=== PATIENT | male | born 1965 | race Caucasian/White ===

== ENCOUNTER 2024-02-25 16:19 | Inpatient (IN) | payer MEDICAID, OTHER ==
[~2024-02-25] VITALS: Ht 172.7 cm; Wt 85.9 kg
--- NOTE | 2024-02-25 16:32 | ED.PDOC ---
SOB-HPI HPI Comments HPI: Poor Historian. 59-year-old male presents to emergency department for worsening shortness of breath for the last three days with associated bilateral pitting edema in lower extremities. Patient states he never had this before. Denies any other acute symptoms. On arrival patient's pulse ox was 70% on room air. He was placed on a supplemental mask. Past Medcial History: Methamphetamine abuse, tobacco abuse, alcohol abuse, chronic abdominal hernia Past Surgical History: Ear tubes in childhood REVIEW OF SYSTEMS: CONSTITUTIONAL: Denies acute: fever, diaphoresis, chills, HEAD: Denies acute: headache, photophobia Eyes: Denies acute: Double vision, vision loss, eye pain, eye discharge. EARS: Denies acute: tinnitus, hearing loss, ear discharge, ear pain, THROAT: Denies acute: sore throat, swelling, difficulty swallowing , pain with swallowing, change in voice. NECK: Denies acute: neck pain, neck swelling, stiff neck. HEART: Denies acute : chest pain, palpitations, LUNGS: Denies acute: wheezing, cough, hemoptysis ABDOMEN: Denies acute: abdominal pain, Nausea, Vomiting, diarrhea, melena , hematemesis, hematochezia SKIN: Denies acute: rash, redness, lesions, itchiness. EXTREMITIES: Denies acute: calf pain, numbness, tingling, weakness, denies pain in extremity. Denies acute: Low back pain. Neuro: Denies acute: focal neurological deficit, motor or sensory focal neurological deficit, tremors, seizure like activity, confusion, dizziness, change in mental status, loss of bowel or bladder function, cauda equina like symptoms. : Denies acute: dysuria, hematuria, flank pain, increase in urinary frequency. PSYCH: Denies acute: hallucination, suicidal ideation, homicidal ideation. PHYSICAL EXAM: General: no acute distress, awake and alert. Head: normocephalic, atraumatic. Neck: supple, trachea is midline, no swelling. Throat: Normal phonation. Eyes:, no erythema, no purulent discharge, no proptosis, no icterus. Heart: regular rate, regular rhythm, no significant murmur appreciated. Lungs: Moderate apparent respiratory distress, Able to speak in full sentences. No wheezing, no rhonchi, no crackles. No stridors Clear to auscultation bilaterally. Abdomen: non tender to palpation, non distended, soft, no guarding, no rebound, + bowel sounds. Noted large abdominal hernia Neuro: Awake, Alert, oriented to name, self, situation, follows commands GCS=15. Speech is normal. Skin: no petechia, no purpura, no cyanosis, non-pale, not jaundice. Lower extremities: --4/4 bilateral - Pitting edema no deformity, no focal swelling, no calf TTP. Makes eye contact. moves all four extremities. Face: no apparent facial droop. Time Seen by MD: 16:21 Primary Care Provider: NONE Reviewed notes: Nurses Notes, Medications, Allergies Information Source: Patient Past Medical History PAST MEDICAL HISTORY: Denies Surgical History: Denies all surgeries Family History Family History: Unknown Social History Smoker: Cigarettes Lives In: Home Was a procedure done? Was a procedure done?: No Differential Dx Differential Diagnosis: Other (DDx include ACS, unstable angina, anxiety, PE, pneumothroax, neoplasm, cardiac ischemia, COPD, asthma, CHF, pleural effusion, tobacco abuse, pneumonia, hypoxia, hypercapnia, anemia., infection/sepsis., pulmonary edema. Asthma, Cardiac tamponade, infection.) X-Ray, Labs, Meds, VS Vital Signs Date Time Temp Pulse Resp B/P (MAP) Pulse Ox O2 Delivery O2 Flow Rate FiO2 02/25/24 20:32 173/122 02/25/24 20:30 107 20 173/122 (139) 100 02/25/24 20:04 22 95 Simple Mask* 8 60 02/25/24 20:00 99 02/25/24 20:00 113 28 100 02/25/24 19:30 111 25 178/130 (146) 100 02/25/24 19:15 97.9 112 24 178/130 (146) 100 97.9 02/25/24 19:15 112 24 100 Simple Mask* 8 60 02/25/24 19:00 112 24 192/124 (146) 100 02/25/24 17:42 129 02/25/24 17:17 192/106 02/25/24 17:15 90 26 100 Simple Mask* 8 60 02/25/24 17:04 90 26 192/106 (134) 100 02/25/24 16:27 98.3 122 18 185/141 (156) 73 Lab Test 02/25/24 20:46 10/30/24 20:23 02/25/24 20:19 02/25/24 18:37 Range/Units SARS-CoV-2 Antigen (Rapid) Negative NEGATIVE Urine Color Yellow Yellow Urine Clarity Turbid H Clear Urine pH 5.0 5.0-9.0 Urine Specific [place] 1.011 1.001-1.035 Urine Protein 1+ H Negative Urine Ketones Negative Negative Urine Blood Negative Negative /uL Urine Nitrite Negative Negative Urine Bilirubin Negative Negative Urine Urobilinogen Normal Negative mg/dL Urine Leukocyte Esterase 2+ Negative /uL Urine RBC 2 0 - 3 /hpf Urine WBC 30 0 - 3 /hpf Urine Squamous Epithelial Cells Few <5 /hpf Urine Amorphous Crystals Few None Seen /hpf Urine Bacteria Few H None Seen /hpf Urine Hyaline Casts Few 0 - 2 /lpf Urine Mucus Few None Seen Urine Glucose Normal Normal mg/dL Urine Opiates Screen Neg NEGATIVE Urine Fentanyl Screen Neg NEGATIVE Urine Barbiturates Screen Neg NEGATIVE Urine Phencyclidine Screen Neg NEGATIVE Urine Amphetamines Screen Neg NEGATIVE Urine Benzodiazepines Screen Neg NEGATIVE Urine Cocaine Screen Neg NEGATIVE Urine Cannabinoids Screen Pos NEGATIVE Lactic Acid Level 2.0 0.4-2.0 mmol/L Troponin I High Sensitivity 123 *H 120 *H </=54 ng/L Test 02/25/24 17:26 Range/Units White Blood Count 8.0 4.4-10.8 10^3/uL Red Blood Count 5.25 4.5-5.90 10^6/uL Hemoglobin 16.1 13.5-17.5 g/dL Hematocrit 48.2 41.0-53.0 % Mean Corpuscular Volume 91.9 80.0-100.0 fL Mean Corpuscular Hemoglobin 30.8 28.0-32.0 pg Mean Corpuscular Hemoglobin Concent 33.5 32.0-36.0 g/dL Red Cell Distribution Width 16.2 H 11.8-14.3 % Platelet Count 302 140-450 10^3/uL Mean Platelet Volume 7.9 6.9-10.8 fL Neutrophils (%) (Auto) 76.6 37.0-80.0 % Lymphocytes (%) (Auto) 14.0 10.0-50.0 % Monocytes (%) (Auto) 8.5 0.0-12.0 % Eosinophils (%) (Auto) 0.3 0.0-7.0 % Basophils (%) (Auto) 0.6 0.0-2.0 % Neutrophils # (Auto) 6.2 1.6-8.6 10 ^3/uL Lymphocytes # (Auto) 1.1 0.4-5.4 10 ^3/uL Monocytes # (Auto) 0.7 0-1.3 10 ^3/uL Eosinophils # (Auto) 0 0-0.8 10 ^3/uL Basophils # (Auto) 0 0-0.2 10 ^3/uL Nucleated Red Blood Cells 0.1 % D-Dimer, Quantitative 3.58 H 0.0-0.49 mg/L FEU Sodium Level 133 L 136-145 mmol/L Potassium Level 5.7 *H 3.5-5.1 mmol/L Chloride Level 100 98-107 mmol/L Carbon Dioxide Level 27 20-31 mmol/L Anion Gap 6 5-15 Blood Urea Nitrogen 40 H 9-23 mg/dL Creatinine 2.20 H 0.700-1.30 mg/dL Glomerular Filtration Rate Calc 34 >90 mL/min BUN/Creatinine Ratio 18.2 10.0-20.0 Serum Glucose 107 H 74-106 mg/dL Lactic Acid Level 2.2 *H 0.4-2.0 mmol/L Calcium Level 9.7 8.7-10.4 mg/dL Magnesium Level 2.5 1.6-2.6 mg/dL Total Bilirubin 2.5 H 0.2-1.0 mg/dL Aspartate Amino Transferase (AST) 205 H 13-40 U/L Alanine Aminotransferase (ALT) 166 H 7-40 U/L Alkaline Phosphatase 116 46-116 U/L Troponin I High Sensitivity 117 *H </=54 ng/L B-Type Natriuretic Peptide 2117.74 0-100 pg/mL Total Protein 7.3 5.7-8.2 g/dL Albumin 3.7 3.2-4.8 g/dL Current Medications Medications (Trade) Dose Ordered Sig/Jose Antonio Route Start Time Stop Time Status Last Admin Furosemide (Lasix Injection) 60 mg ONCE ONCE IV 02/25/24 16:45 02/25/24 16:46 DC 02/25/24 17:17 Diltiazem HCl (Cardizem Injection) 5 mg ONCE ONCE IV 02/25/24 19:00 02/25/24 19:01 DC 02/25/24 18:56 Diltiazem HCl 125 ml @ 5 mls/hr Q24H ONCE IV 02/25/24 19:30 02/25/24 21:29 DC 02/25/24 20:32 Aspirin 325 mg ONCE ONCE PO 02/25/24 19:45 02/25/24 19:46 DC 02/25/24 20:12 Albuterol (Ventolin Medneb) 20 mg ONCE ONCE NEB 02/25/24 19:45 02/25/24 19:46 DC 02/25/24 20:04 Sodium Bicarbonate 50 ml ONCE ONCE IV 02/25/24 19:45 02/25/24 19:46 DC 02/25/24 20:13 Calcium Gluconate/ Sodium Chloride 50 ml @ 120 mls/hr ONCE ONCE IV 02/25/24 19:45 02/25/24 20:09 DC 02/25/24 20:13 Zirconium Oxide (Lokelma) 10 gm ONCE ONCE PO 02/25/24 19:45 02/25/24 19:46 DC 02/25/24 20:12 [place] [id number] Ph: [phone] DIAGNOSTIC IMAGING Diagnostic Imaging Report : [id number] Signed PATIENT: SUZETTE MARTINI ACCT: [id number] UNIT: [id number] : 1965 LOC: ER ROOM / BED: / AGE / SEX: 59 / M ADM STATUS: REG ER SERVICE 1628 ORDERING PHYSICIAN: DELROY DODGE DO PROCEDURE(s): CXRP - CHEST PORTABLE REASON: sob ORDER NUMBER(s): [id number], ACCESSION NUMBER(s): [id number] EXAM: XR Chest, 1 View CLINICAL INDICATION: sob TECHNIQUE: Frontal view of the chest. COMPARISON: None FINDINGS: LUNGS AND PLEURAL SPACES: See below. HEART: Cardiomegaly with pulmonary congestion and edema. Pneumonia cannot be excluded. MEDIASTINUM: Unremarkable. Normal mediastinal contour. BONES/JOINTS: Unremarkable. No acute fracture. OTHER FINDINGS: . . IMPRESSION: Cardiomegaly with pulmonary congestion and edema. Pneumonia cannot be excluded. HS:Y ATED BY: LIDYA MICHEL MD DICTATED DATE/TIME: 02/25/241730 SIGNED BY: LIDYA MICHEL MD SIGNED DATE/TIME: 02/25/241730 CC: Time of 1ST Reevaluation: 18:44 (The case was discussed with the cardiology team (HPI, physical exam, labs and diagnostic tests that were available at the time of disposition, ED course, treatment plan) on the phone. They agreed with our management and recommended to consider ruling out PE as well. I ordered a D-dimer. They said they will follow in consult. Dr. Vasquez. He said patient has atrial fibrillation with a left bundle. ) Reevaluation 1ST: Unchanged Time of 2ND Reevaluation: 02:57 Reevaluation 2ND: Improved Patient Education/Counseling: Diagnosis, Treatment Family Education/Counseling: No Family Present Comments CTA angiogram was canceled because of patient kidney function. Patient was started on anticoagulation already by the admitting team for possible PE given the patient's elevated D-dimer and shortness of breath and tachycardia. Patient presented with the above HPI.--dyspnea----workup was initiated. patient was found with the above mentioned diagnosis. Patient was given: Hyperkalemia protocol was initiated. Patient was given Lasix. Patient was given diltiazem bolus and a drip. Patient ED course and VS have been stabilized. Patient has been reassessed in the ED and remained in a stable condition. Cardiology was consulted Pertinent incidental findings were discussed with the patient and/or family. Patient/family voices understanding and is agreeable with plan. Patient has been observed in the ED adequate length of time to insure improvement/stability. patient was admitted to the medicine team for further evaluation and treatment of their presentation. All the reports of any imaging studies that were ordered by myself were reviewed by myself. Departure 1 Departure Time of Disposition: 19:39 Impression: Primary Impression: Hypoxemia Additional Impressions: Dyspnea Atrial fibrillation with RVR Methamphetamine abuse Alcohol abuse Elevated troponin Hyperkalemia Acute renal failure Congestive heart failure Acute CHF Disposition: ADMITTED INPATIENT Admit to: [facility] Condition: Guarded Discharged With: Self Critical Care Note Critical Care Time?: Yes (55 min-critical care time only) Heart Score Heart Score: Heart Score Response (Comments) Value History Moderate Suspicious [address]-Deviation 2 Age 45-64 1 Risk Factors 1 or 2 risk factors 1 Troponin 1-2 x's Normal limit 1 Total 6 DELROY DODGE DO Feb 25, 2024 16:32
--- NOTE | 2024-02-25 16:53 | ECG ---
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
[2024-02-25 17:15] VITALS: PULSE 90; RESP 26; O2SAT 100
[2024-02-25] MEDS: FUROSEMIDE 100 MG/10ML VIAL IV ONE (17:17)
--- NOTE | 2024-02-25 17:34 | DVH ---
EXAM: XR Chest, 1 View CLINICAL INDICATION: sob TECHNIQUE: Frontal view of the chest. COMPARISON: None FINDINGS: LUNGS AND PLEURAL SPACES: See below. HEART: Cardiomegaly with pulmonary congestion and edema. Pneumonia cannot be excluded. MEDIASTINUM: Unremarkable. Normal mediastinal contour. BONES/JOINTS: Unremarkable. No acute fracture. OTHER FINDINGS: . . IMPRESSION: Cardiomegaly with pulmonary congestion and edema. Pneumonia cannot be excluded. HS:Y
[2024-02-25 18:20] LABS: Basophils # (auto) 0 10 ^3/uL (0-0.2); Basophils % (auto) 0.6 % (0.0-2.0); Eosinophils # (auto) 0 10 ^3/uL (0-0.8); Eosinophils % (auto) 0.3 % (0.0-7.0); Hematocrit 48.2 % (41.0-53.0); Hemoglobin 16.1 g/dL (13.5-17.5); Lymphocytes # (auto) 1.1 10 ^3/uL (0.4-5.4); Mean Corpuscular Hemoglobin 30.8 pg (28.0-32.0); Mean Corpuscular Hgb Conc. 33.5 g/dL (32.0-36.0); Mean Corpuscular Volume 91.9 fL (80.0-100.0); Monocytes # (auto) 0.7 10 ^3/uL (0-1.3); Monocytes % (auto) 8.5 % (0.0-12.0); Neutrophils # (auto) 6.2 10 ^3/uL (1.6-8.6); Neutrophils % (auto) 76.6 % (37.0-80.0); Nucleated Red Blood Cells % 0.1 %; Platelet Count (auto) 302 10^3/uL (140-450); Red Blood Cells 5.25 10^6/uL (4.5-5.90); Red Cell Distribution Width 16.2 % (11.8-14.3)
[2024-02-25 18:34] LABS: Alanine Aminotransferase 166 U/L (7-40); Albumin 3.7 g/dL (3.2-4.8); Alkaline Phosphatase 116 U/L (46-116); Anion Gap 6 (5-15); Aspartate Aminotransferase 205 U/L (13-40); BUN/Creatinine Ratio 18.2 (10.0-20.0); Blood Urea Nitrogen 40 mg/dL (9-23); Calcium 9.7 mg/dL (8.7-10.4); Carbon Dioxide 27 mmol/L (20-31); Chloride 100 mmol/L (98-107); Glucose 107 mg/dL (74-106); Magnesium 2.5 mg/dL (1.6-2.6); Sodium 133 mmol/L (136-145)
[2024-02-25 18:35] LABS: Bilirubin, Total 2.5 mg/dL (0.2-1.0); Total Protein 7.3 g/dL (5.7-8.2)
[2024-02-25 18:46] LABS: Lactic Acid w/Reflex 2.2 mmol/L (0.4-2.0); Potassium 5.7 mmol/L (3.5-5.1)
[2024-02-25] MEDS: dilTIAZem 25 MG/5 ML VIAL IV ONE (18:56)
[2024-02-25 19:15] VITALS: PULSE 112; RESP 24; O2SAT 100
[2024-02-25] MEDS: ALBUTEROL SULF 2.5 MG/0.5ML(0.5%) NEB SOLN NEB ONE (20:04)
[2024-02-25] MEDS: ASPirin 325 MG TAB PO ONE (20:12)
[2024-02-25] MEDS: SODIUM ZIRCONIUM CYCL 10 GM PAK PO ONE (20:12)
[2024-02-25] MEDS: CALCIUM GLUC 1,000mg/50ml-NS 50 ML IV ONE (20:13)
[2024-02-25] MEDS: SODIUM BICARB 8.4% 50Meq/50ml SYR INJ IV ONE (20:13)
[2024-02-25] MEDS: dilTIAZem 125mg/125ml BAG KIT 125 ML IV ONE (20:32)
[2024-02-25 20:53] LABS: Amphetamine Screen, Urine Neg (NEGATIVE); Barbiturate Scree,Urine Neg (NEGATIVE); Benzodiazephine Screen, Urine Neg (NEGATIVE); Cocaine Screen, Urine Neg (NEGATIVE); Opiate Scree,Urine Neg (NEGATIVE)
[2024-02-25 20:54] LABS: Cannabinoid Screen, Urine Pos (NEGATIVE); Phencyclidine Screen, Urine Neg (NEGATIVE)
[2024-02-25] MEDS ORDERED: ONDANSETRON HCL 4 MG/2 ML VIAL IV PRN (21:00)
[2024-02-25] MEDS ORDERED: TEMAZEPAM 15 MG CAP PO PRN (21:00)
[2024-02-25] MEDS ORDERED: NITROGLYCERIN 0.4 MG SL TAB SL PRN (21:00)
[2024-02-25] MEDS ORDERED: MORPHINE SULFATE INJ 2 MG/ml SYRG IV PRN (21:00)
[2024-02-25] MEDS ORDERED: ACETAMINOPHEN 325 MG TAB PO PRN (21:00)
[2024-02-25 21:16] LABS: Urine Amorphous Crystal FEW /hpf (None Seen); Urine Bacteria FEW /hpf (None Seen); Urine Blood Negative /uL (Negative); Urine Clarity Turbid (Clear); Urine Color Yellow (Yellow); Urine Hyaline Cast FEW /lpf (0 - 2); Urine Mucus FEW (None Seen); Urine Protein, UAD 1+ (Negative); Urine Specific Gravity 1.011 (1.001-1.035); Urine Urobilinogen Normal (Negative); Urine WBC 30 /hpf (0 - 3)
[2024-02-25] MEDS: dilTIAZem 125mg/125ml BAG KIT 100 ML IV SCH (21:30)
--- NOTE | 2024-02-25 21:39 | DVH ---
Bilateral lower extremity venous duplex Clinical History: r/o dvt Comparison: None Technique: Duplex Doppler evaluation of the deep venous systems of both lower extremities from the common femora l veins to the popliteal veins including color Doppler and spectral/pulsed waveform analysis was perf ormed. Findings: RIGHT SIDE: The common femoral vein demonstrates appropriate compressibility and waveform variability. There is compressibility/patency of the great saphenous vein at the proximal thigh. The femoral vein demonstrates appropriate compressibility and waveform variability. The deep femoral vein demonstrates appropriate compressibility and waveform variability. The popliteal vein demonstrates appropriate compressibility and waveform variability. There is normal compressibility at the tibioperoneal trunk. LEFT SIDE: The common femoral vein demonstrates appropriate compressibility and waveform variability. There is compressibility/patency of the great saphenous vein at the proximal thigh. The femoral vein demonstrates appropriate compressibility and waveform variability. The deep femoral vein demonstrates appropriate compressibility and waveform variability. The popliteal vein demonstrates appropriate compressibility and waveform variability. There is normal compressibility at the tibioperoneal trunk. Impression: No right or left femoropopliteal venous thrombosis.
[2024-02-25] MEDS: ENOXAPARIN SOD 100 MG/1 ML SYRINGE SC ONE (21:45)
[2024-02-25 21:50] LABS: COVID19 ANTIGEN SOFIA FIA NEGATIVE (NEGATIVE)
[2024-02-25] MEDS: CARVEDILOL 3.125 MG TAB PO SCH (22:05)
[2024-02-25] MEDS: ATORVASTATIN 20 MG TAB PO SCH (22:05)
--- NOTE | 2024-02-25 22:21 | DVHHP2 ---
History of Present Illness Reason for Visit: Shortness of breath History of Present Illness 59-year-old male presents for evaluation of shortness of breath. Patient with a history of congestive heart failure presents for evaluation of a three day history of worsening shortness for breath with associated bilateral lower extremity swelling. He also reports mild chest pressure. No other acute complaints reported. Past Medical History CHF Past Surgical History Denies Family History Noncontributory Smoke: No ALCOHOL: occassional Drugs: None, Marijuana, Other (Methamphetamine) Lives: Alone Review of Systems Review of Systems Review of systems are currently otherwise addressed in HPI. Allergies: Coded Allergies: NO KNOWN ALLERGIES (Unverified , 10/11/10) Medications Current Medications Medications Dose Ordered Sig/Jose Antonio Route Start Time Stop Time Status Last Admin Dose Admin Diltiazem HCl 100 ml @ 5 mls/hr Q20H IV 02/25/24 21:00 02/25/24 21:30 10 MLS/HR Carvedilol 6.25 mg Q12HR PO 02/25/24 22:00 02/25/24 22:05 6.25 MG Atorvastatin Calcium 10 mg HS PO 02/25/24 22:00 02/25/24 22:05 10 MG Aspirin 162 mg DAILY PO 02/26/24 10:00 Amlodipine Besylate 5 mg DAILY PO 02/26/24 10:00 Furosemide 20 mg BIDD IV 02/26/24 06:00 Temazepam 15 mg QHSP PRN PO 02/25/24 21:00 Ondansetron HCl 4 mg Q4HP PRN IV 02/25/24 21:00 Acetaminophen 650 mg Q6HP PRN PO 02/25/24 21:00 Nitroglycerin 0.4 mg Q5MINP PRN SL 02/25/24 21:00 Morphine Sulfate 2 mg Q30M PRN IV 02/25/24 21:00 Ceftriaxone Sodium 50 ml @ 100 mls/hr DAILY@09 IV 02/26/24 09:00 UNV Exam Vital Signs Vital Signs Date Time Temp Pulse Resp B/P (MAP) Pulse Ox O2 Delivery O2 Flow Rate FiO2 02/25/24 22:05 97 176/120 02/25/24 21:00 23 100 02/25/24 20:04 Simple Mask* 8 60 02/25/24 19:15 97.9 97.9 Exam Gen: 59-year-old male mild distress Skin: Warm, dry, normal color and texture, no rash. HEENT: Normocephalic atraumatic, mucous membranes moist and pink. Neck: Cervical and supraclavicular nodes normal without enlargement, trachea is midline, thyroid gland is normal without masses. Pulmonary: Clear to auscultation and percussion bilaterally. Cardiac: Regular rate and rhythm. No murmur Abdomen: Soft, nontender, nondistended, bowel sounds present all 4 quadrants, no guarding, no rigidity, no organomegaly. Extremities: No cyanosis, clubbing, plus three pedal edema Neuro: Cranial nerves II through XII grossly intact, normal affect and speech, no focal motor deficits. Labs/Xrays ORDERING PHYSICIAN: DELROY DODGE DO PROCEDURE(s): CXRP - CHEST PORTABLE REASON: sob ORDER NUMBER(s): [id number], ACCESSION NUMBER(s): [id number] EXAM: XR Chest, 1 View CLINICAL INDICATION: sob TECHNIQUE: Frontal view of the chest. COMPARISON: None FINDINGS: LUNGS AND PLEURAL SPACES: See below. HEART: Cardiomegaly with pulmonary congestion and edema. Pneumonia cannot be excluded. MEDIASTINUM: Unremarkable. Normal mediastinal contour. BONES/JOINTS: Unremarkable. No acute fracture. OTHER FINDINGS: . . IMPRESSION: Cardiomegaly with pulmonary congestion and edema. Pneumonia cannot be excluded. HS:Y RING PHYSICIAN: LAURYN PENNY AGACNP PROCEDURE(s): BLDVT - BiLat Lower DVT REASON: r/o dvt ORDER NUMBER(s): [id number], ACCESSION NUMBER(s): [id number] Bilateral lower extremity venous duplex Clinical History: r/o dvt Comparison: None Technique: Duplex Doppler evaluation of the deep venous systems of both lower extremities from the common femoral veins to the popliteal veins including color Doppler and spectral/pulsed waveform analysis was performed. Findings: RIGHT SIDE: The common femoral vein demonstrates appropriate compressibility and waveform variability. There is compressibility/patency of the great saphenous vein at the proximal thigh. The femoral vein demonstrates appropriate compressibility and waveform variability. The deep femoral vein demonstrates appropriate compressibility and waveform variability. The popliteal vein demonstrates appropriate compressibility and waveform variability. There is normal compressibility at the tibioperoneal trunk. LEFT SIDE: The common femoral vein demonstrates appropriate compressibility and waveform variability. There is compressibility/patency of the great saphenous vein at the proximal thigh. The femoral vein demonstrates appropriate compressibility and waveform variability. The deep femoral vein demonstrates appropriate compressibility and waveform variability. The popliteal vein demonstrates appropriate compressibility and waveform variability. There is normal compressibility at the tibioperoneal trunk. Impression: No right or left femoropopliteal venous thrombosis. Labs Test 02/25/24 20:46 02/25/24 20:23 02/25/24 20:19 02/25/24 17:26 Range/Units SARS-CoV-2 Antigen (Rapid) Negative NEGATIVE Urine Color Yellow Yellow Urine Clarity Turbid H Clear Urine pH 5.0 5.0-9.0 Urine Specific [place] 1.011 1.001-1.035 Urine Protein 1+ H Negative Urine Ketones Negative Negative Urine Blood Negative Negative /uL Urine Nitrite Negative Negative Urine Bilirubin Negative Negative Urine Urobilinogen Normal Negative mg/dL Urine Leukocyte Esterase 2+ Negative /uL Urine RBC 2 0 - 3 /hpf Urine WBC 30 0 - 3 /hpf Urine Squamous Epithelial Cells Few <5 /hpf Urine Amorphous Crystals Few None Seen /hpf Urine Bacteria Few H None Seen /hpf Urine Hyaline Casts Few 0 - 2 /lpf Urine Mucus Few None Seen Urine Glucose Normal Normal mg/dL Urine Opiates Screen Neg NEGATIVE Urine Fentanyl Screen Neg NEGATIVE Urine Barbiturates Screen Neg NEGATIVE Urine Phencyclidine Screen Neg NEGATIVE Urine Amphetamines Screen Neg NEGATIVE Urine Benzodiazepines Screen Neg NEGATIVE Urine Cocaine Screen Neg NEGATIVE Urine Cannabinoids Screen Pos NEGATIVE Lactic Acid Level 2.0 0.4-2.0 mmol/L Troponin I High Sensitivity 123 *H </=54 ng/L White Blood Count 8.0 4.4-10.8 10^3/uL Red Blood Count 5.25 4.5-5.90 10^6/uL Hemoglobin 16.1 13.5-17.5 g/dL Hematocrit 48.2 41.0-53.0 % Mean Corpuscular Volume 91.9 80.0-100.0 fL Mean Corpuscular Hemoglobin 30.8 28.0-32.0 pg Mean Corpuscular Hemoglobin Concent 33.5 32.0-36.0 g/dL Red Cell Distribution Width 16.2 H 11.8-14.3 % Platelet Count 302 140-450 10^3/uL Mean Platelet Volume 7.9 6.9-10.8 fL Neutrophils (%) (Auto) 76.6 37.0-80.0 % Lymphocytes (%) (Auto) 14.0 10.0-50.0 % Monocytes (%) (Auto) 8.5 0.0-12.0 % Eosinophils (%) (Auto) 0.3 0.0-7.0 % Basophils (%) (Auto) 0.6 0.0-2.0 % Neutrophils # (Auto) 6.2 1.6-8.6 10 ^3/uL Lymphocytes # (Auto) 1.1 0.4-5.4 10 ^3/uL Monocytes # (Auto) 0.7 0-1.3 10 ^3/uL Eosinophils # (Auto) 0 0-0.8 10 ^3/uL Basophils # (Auto) 0 0-0.2 10 ^3/uL Nucleated Red Blood Cells 0.1 % D-Dimer, Quantitative 3.58 H 0.0-0.49 mg/L FEU Sodium Level 133 L 136-145 mmol/L Potassium Level 5.7 *H 3.5-5.1 mmol/L Chloride Level 100 98-107 mmol/L Carbon Dioxide Level 27 20-31 mmol/L Anion Gap 6 5-15 Blood Urea Nitrogen 40 H 9-23 mg/dL Creatinine 2.20 H 0.700-1.30 mg/dL Glomerular Filtration Rate Calc 34 >90 mL/min BUN/Creatinine Ratio 18.2 10.0-20.0 Serum Glucose 107 H 74-106 mg/dL Calcium Level 9.7 8.7-10.4 mg/dL Magnesium Level 2.5 1.6-2.6 mg/dL Total Bilirubin 2.5 H 0.2-1.0 mg/dL Aspartate Amino Transferase (AST) 205 H 13-40 U/L Alanine Aminotransferase (ALT) 166 H 7-40 U/L Alkaline Phosphatase 116 46-116 U/L B-Type Natriuretic Peptide 2117.74 0-100 pg/mL Total Protein 7.3 5.7-8.2 g/dL Albumin 3.7 3.2-4.8 g/dL Assessment/Plan Assessment/Plan Assessment Acute on chronic congestive heart failure AFib with RVR Drug-induced cardiomyopathy Acute renal failure Urinary tract infection Admit the patient to [facility] to the hospitalist Cardiology consultation Nephrology consult Continue the diltiazem drip V/Q scan pending Rocephin Continue treatment per orders. Total critical care time excluding procedures performed this 50 minutes. Plan discussed with: Patient My Orders Orders - LAURYN PENNY AGACNP Procedure Category Date Status Time Diltiazem 125mg/125ml PHA 02/25/24 In Process Bag Kit (Cardizem) 21:00 Carvedilol Tablet PHA 02/25/24 In Process (Coreg Tablet) 22:00 Atorvastatin (Lipitor) PHA 02/25/24 In Process 22:00 Aspirin Tablet PHA 02/26/24 In Process 10:00 Amlodipine Tablet PHA 02/26/24 In Process (Norvasc Tablet) 10:00 *Dr[facility] CONS 02/25/24 Transmitted -[place] 20:46 Nm Vq Scan NM 02/25/24 Logged 20:46 Bilat Lower Dvt US 02/25/24 Resulted 20:46 Furosemide Injection PHA 02/26/24 In Process (Lasix Injection) 06:00 Admit ADMIT 02/25/24 Transmitted 20:46 Temazepam (Restoril) PHA 02/25/24 In Process 21:00 Ondansetron Hcl PHA 02/25/24 In Process (Zofran) 21:00 Complete Blood Count LAB 02/26/24 Verified 04:00 Cardiac DIET 02/26/24 Transmitted Diet-2gna,Lofat,Lochol Breakfast Echo 2d Mode Cardiac US 02/25/24 Logged DOP 20:46 Condition: Fair AGUEDA 02/25/24 In Process 20:46 Acetaminophen Tablet PHA 02/25/24 In Process (Tylenol Tablet) 21:00 Bedrest With Bathroom AGUEDA 02/25/24 In Process Privileg 20:46 Nitroglycerin PHA 02/25/24 In Process Sublingual (Ntrostat 21:00 Morphine Sulfate PHA 02/25/24 In Process Injection 21:00 Stat Ekg For Chest AGUEDA 02/25/24 In Process Pain 20:46 Notify Of Changes AGUEDA 02/25/24 In Process From Base 20:46 Political Research Scientist For AGUEDA 02/25/24 In Process 24 Hours 20:46 Emergency Dysrhythmia AGUEDA 02/25/24 In Process Protocol 20:46 Rhythm Strips Once AGUEDA 02/25/24 In Process Every Shift 20:46 Oxygen By Nasal RT 02/25/24 Transmitted Cannula 20:46 Ceftriaxone 1gm/50ml PHA 02/26/24 Logged D5w (Rocephin) 09:00 Ceftriaxone 1gm/50ml PHA 02/25/24 Logged D5w (Rocephin) 22:15 Date of Service: Feb 25, 2024 Billing Provider: LAURYN PENNY Common Visit Codes: [id number] INP/OBS CARE (HIGH), [id number] CARE- EACH +30MIN LAURYN PENNY Feb 25, 2024 22:20
[2024-02-25] MEDS: cefTRIAXone 1GM/50ML D5W 50 ML IV ONE (22:52)
[2024-02-26 04:02] LABS: Basophils # (auto) 0.1 10 ^3/uL (0-0.2); Eosinophils # (auto) 0 10 ^3/uL (0-0.8); Eosinophils % (auto) 0.1 % (0.0-7.0); Hematocrit 41.7 % (41.0-53.0); Hemoglobin 13.9 g/dL (13.5-17.5); Lymphocytes # (auto) 1.3 10 ^3/uL (0.4-5.4); Lymphocytes % (auto) 16.1 % (10.0-50.0); Mean Corpuscular Hemoglobin 30.6 pg (28.0-32.0); Mean Corpuscular Hgb Conc. 33.3 g/dL (32.0-36.0); Mean Corpuscular Volume 92.1 fL (80.0-100.0); Monocytes # (auto) 0.7 10 ^3/uL (0-1.3); Monocytes % (auto) 7.9 % (0.0-12.0); Neutrophils # (auto) 6.3 10 ^3/uL (1.6-8.6); Neutrophils % (auto) 74.9 % (37.0-80.0); Platelet Count (auto) 256 10^3/uL (140-450); Red Blood Cells 4.52 10^6/uL (4.5-5.90); Red Cell Distribution Width 16.3 % (11.8-14.3); White Blood Cell 8.4 10^3/uL (4.4-10.8)
[2024-02-26 04:11] LABS: Anion Gap 8 (5-15); Carbon Dioxide 28 mmol/L (20-31); Chloride 100 mmol/L (98-107); Potassium 5.1 mmol/L (3.5-5.1); Sodium 136 mmol/L (136-145)
[2024-02-26 04:17] LABS: Glucose 92 mg/dL (74-106)
[2024-02-26 04:18] LABS: Blood Urea Nitrogen 32 mg/dL (9-23)
[2024-02-26] MEDS: FUROSEMIDE 20 MG/2 ML VIAL IV SCH ×2 (06:10→13:20)
[2024-02-26 09:32] LABS: Bilirubin, Direct 0.8 mg/dL (<0.3); Bilirubin, Total 1.7 mg/dL (0.2-1.0); Magnesium 2.3 mg/dL (1.6-2.6); Phosphorus 5.7 mg/dL (2.4-5.1); Total Protein 6.3 g/dL (5.7-8.2)
--- NOTE | 2024-02-26 09:42 | DVH ---
Bilateral Chest Sonogram Date: 02/26/2024 09:16 AM Clinical history: FLUID CHECK Findings: Limited sonographic evaluation of the right and left chest was performed to localize and cheyanne fluid f or thoracentesis. There is a moderate pleural effusion. IMPRESSION: Moderate bilateral pleural effusions
[2024-02-26] MEDS: amLODIPine BESYLATE 5 MG TAB PO SCH (09:49)
[2024-02-26] MEDS: ASPirin 81 mg TAB PO SCH (09:49)
[2024-02-26 10:14] LABS: INR 1.36 (0.9-1.15); Partial Thromboplastin Time 29.8 SEC (24.5-34.5); Prothrombin Time 14.1 sec (9.3-11.8)
--- NOTE | 2024-02-26 11:21 | DVH ---
CHEST RADIOGRAPH Indication:POST THORACENTESIS (PT IN ULTRASOUND ROOM) Technique: Single frontal view of the chest was obtained Comparison: XY CHEST PORTABLE on DOS: 02/25/24 FINDINGS: Lines and Tubes: None Lungs: No focal consolidation. Pleura: No pleural effusions. No pneumothorax. Cardiomediastinal contours: Cardiomegaly. Bones: No acute osseous abnormality. IMPRESSION: Cardiomegaly with CHF.
--- NOTE | 2024-02-26 11:38 | DVHINCON2 ---
Date Seen: Feb 26, [address] King Reason for Consultation SOB and abnormal EKG History of Present Illness Mateo Olivo this is a 59-year-old male patient who presents to ED with complaint of progressive dyspnea from functional class II to functional class IV three days before his admission, associated he did present nonproductive cough, leg swelling, exertional dyspnea, orthopnea and paroxysmal nocturnal dyspnea. Denies palpitation, syncope, fever, chills, chest pain, nausea, vomiting, diarrhea, bleeding, dysuria and motor or sensory deficits. Cardiology was consulted due to dyspnea and abnormal EKG (patient had atrial fibrillation/atrial flutter associated with RBBB, had received diltiazem in ED. Past medical history: GERD Surgical history: Tympanocentesis with tube placement when young Family history: Father had hypertension Social history: Lives in [place] with his father. Currently smokes tobacco (30 pack-year history of smoking), does not smoke marijuana but consumes food with CBD) normally drinks 6-8 beers a day, but has not been drinking for the past seven days, abuses mass (last dose given on 02/21/2024. Denies any other drug abuse. Allergies: Denies Home medication: Denies Patient seen and examined at bedside. Currently patient feels better, is less s hort of breath. Continues with oxygen therapy at 4 liters/minute Past Medical History Per HPI Past Surgical History Per HPI Family History Per HPI Social History Per HPI Allergies: Coded Allergies: NO KNOWN ALLERGIES (Unverified , 10/11/10) Home Meds No Active Prescriptions or Reported Meds Current Medications Current Medications Medications (Trade) Dose Ordered Sig/Jose Antonio Route PRN Reason Start Time Stop Time Status Last Admin Diltiazem HCl 100 ml @ 5 mls/hr Q20H IV 02/25/24 21:00 02/26/24 03:40 DC 02/25/24 21:30 Carvedilol (Coreg Tablet) 6.25 mg Q12HR PO 02/25/24 22:00 02/26/24 09:48 Atorvastatin Calcium (Lipitor) 10 mg HS PO 02/25/24 22:00 02/25/24 22:05 Aspirin 162 mg DAILY PO 02/26/24 10:00 02/26/24 09:49 Amlodipine Besylate (Norvasc Tablet) 5 mg DAILY PO 02/26/24 10:00 Hold 02/26/24 09:49 Furosemide (Lasix Injection) 20 mg BIDD IV 02/26/24 06:00 02/26/24 11:36 DC 02/26/24 06:10 Temazepam (Restoril) 15 mg QHSP PRN PO FOR INSOMNIA 02/25/24 21:00 Ondansetron HCl (Zofran) 4 mg Q4HP PRN IV NAUSEA / VOMITING 02/25/24 21:00 Acetaminophen (Tylenol Tablet) 650 mg Q6HP PRN PO PAIN SCALE 1-3 OR TEMP>100.4 02/25/24 21:00 Nitroglycerin (Ntrostat Sublingual) 0.4 mg Q5MINP PRN SL FOR CHEST PAIN 02/25/24 21:00 Morphine Sulfate 2 mg Q30M PRN IV FOR CHEST PAIN 02/25/24 21:00 Ceftriaxone Sodium 50 ml @ 100 mls/hr Q24H IV 02/26/24 21:00 Furosemide (Lasix Injection) 40 mg BIDD IV 02/26/24 11:45 UNV Review of Systems Per HPI Vital Signs Vital Signs Date Time Temp Pulse Resp B/P (MAP) Pulse Ox O2 Delivery O2 Flow Rate FiO2 02/26/24 10:00 81 18 138/90 (106) 99 02/26/24 08:00 97.6 97.6 02/25/24 20:04 Simple Mask* 8 60 Physical Exam Patient lying in bed, in no acute distress General: Lucid, afebrile, mucosae are moist Cardiovascular: Tachycardic, normal S1 and S2, presents S3. No murmurs or rubs Respiratory: Normal ventilation mechanics. Bibasilar hyperventilation with rales up to mid hemithorax. Rest of lung auscultation is clear Abdomen: Soft, nontender, no organomegaly, normal bowel sounds. Umbilical he rnia and large bilateral inguinal hernia. MSK/skin: Mobilizes 4 limbs. Skin is dry and warm. Bilateral suprapatellar pitting edema +3 Neurological: Oriented in 3 spheres. No motor no sensitive deficits. Pupils are isocoric and reactive Labs/Diagnostic Data Labs Test 02/26/24 11:15 02/26/24 10:00 02/26/24 09:36 02/26/24 03:33 Range/Units Prothrombin Time 14.1 H 9.3-11.8 sec Prothrombin Time INR 1.36 H 0.9-1.15 Activated Partial Thromboplast Time 29.8 24.5-34.5 SEC Lactic Acid Level 1.0 0.4-2.0 mmol/L White Blood Count 8.4 4.4-10.8 10^3/uL Red Blood Count 4.52 4.5-5.90 10^6/uL Hemoglobin 13.9 13.5-17.5 g/dL Hematocrit 41.7 # 41.0-53.0 % Mean Corpuscular Volume 92.1 80.0-100.0 fL Mean Corpuscular Hemoglobin 30.6 28.0-32.0 pg Mean Corpuscular Hemoglobin Concent 33.3 32.0-36.0 g/dL Red Cell Distribution Width 16.3 H 11.8-14.3 % Platelet Count 256 140-450 10^3/uL Mean Platelet Volume 7.8 6.9-10.8 fL Neutrophils (%) (Auto) 74.9 37.0-80.0 % Lymphocytes (%) (Auto) 16.1 10.0-50.0 % Monocytes (%) (Auto) 7.9 0.0-12.0 % Eosinophils (%) (Auto) 0.1 0.0-7.0 % Basophils (%) (Auto) 1.0 0.0-2.0 % Neutrophils # (Auto) 6.3 1.6-8.6 10 ^3/uL Lymphocytes # (Auto) 1.3 0.4-5.4 10 ^3/uL Monocytes # (Auto) 0.7 0-1.3 10 ^3/uL Eosinophils # (Auto) 0 0-0.8 10 ^3/uL Basophils # (Auto) 0.1 0-0.2 10 ^3/uL Nucleated Red Blood Cells 0.0 % Sodium Level 136 136-145 mmol/L Potassium Level 5.1 3.5-5.1 mmol/L Chloride Level 100 98-107 mmol/L Carbon Dioxide Level 28 20-31 mmol/L Anion Gap 8 5-15 Blood Urea Nitrogen 32 H 9-23 mg/dL Creatinine 2.14 H 0.700-1.30 mg/dL Glomerular Filtration Rate Calc 35 >90 mL/min BUN/Creatinine Ratio 15.0 10.0-20.0 Serum Glucose 92 74-106 mg/dL Hemoglobin A1c 5.5 <5.7 % A1C Calcium Level 9.0 8.7-10.4 mg/dL Phosphorus Level 5.7 H 2.4-5.1 mg/dL Magnesium Level 2.3 1.6-2.6 mg/dL Total Bilirubin 1.7 H 0.2-1.0 mg/dL Direct Bilirubin 0.8 H <0.3 mg/dL Aspartate Amino Transferase (AST) 238 H 13-40 U/L Alanine Aminotransferase (ALT) 183 H 7-40 U/L Alkaline Phosphatase 93 46-116 U/L Total Protein 6.3 5.7-8.2 g/dL Albumin 3.0 L 3.2-4.8 g/dL Triglycerides Level 76 < 150 mg/dL Cholesterol Level 118 < 200 mg/dL LDL Cholesterol 91 < 100 mg/dL HDL Cholesterol 25 L 40-59 mg/dL Thyroid Stimulating Hormone (TSH) 2.45 0.55-4.78 uIU/mL Test 02/25/24 20:46 02/25/24 20:23 02/25/24 20:19 02/25/24 17:26 Range/Units SARS-CoV-2 Antigen (Rapid) Negative NEGATIVE Urine Color Yellow Yellow Urine Clarity Turbid H Clear Urine pH 5.0 5.0-9.0 Urine Specific [place] 1.011 1.001-1.035 Urine Protein 1+ H Negative Urine Ketones Negative Negative Urine Blood Negative Negative /uL Urine Nitrite Negative Negative Urine Bilirubin Negative Negative Urine Urobilinogen Normal Negative mg/dL Urine Leukocyte Esterase 2+ Negative /uL Urine RBC 2 0 - 3 /hpf Urine WBC 30 0 - 3 /hpf Urine Squamous Epithelial Cells Few <5 /hpf Urine Amorphous Crystals Few None Seen /hpf Urine Bacteria Few H None Seen /hpf Urine Hyaline Casts Few 0 - 2 /lpf Urine Mucus Few None Seen Urine Glucose Normal Normal mg/dL Urine Opiates Screen Neg NEGATIVE Urine Fentanyl Screen Neg NEGATIVE Urine Barbiturates Screen Neg NEGATIVE Urine Phencyclidine Screen Neg NEGATIVE Urine Amphetamines Screen Neg NEGATIVE Urine Benzodiazepines Screen Neg NEGATIVE Urine Cocaine Screen Neg NEGATIVE Urine Cannabinoids Screen Pos NEGATIVE Troponin I High Sensitivity 123 *H </=54 ng/L D-Dimer, Quantitative 3.58 H 0.0-0.49 mg/L FEU B-Type Natriuretic Peptide 2117.74 0-100 pg/mL Assessment Acute respiratory failure Acute new onset congestive heart failure (pending LVEF, likely HFrEF) 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 Currently on furosemide 40 mg IV b.i.d. Troponin probably secondary to CHF and recent methamphetamine abuse. Completed right-sided thoracentesis with debit of 1.4 L of transudate. We will start enoxaparin for atrial fibrillation/atrial flutter. Optimize loading conditions We will started GDMT once echocardiogram is completed and JEFFREY resolves Strongly counseled on polysubstance abuse cessation. IV antibiotics per hospitalist Discussed case with Dr. 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 Strongly counseled patient on polysubstance abuse cessation. Recommend not using calcium channel blockers in this patient, until obtaining echocardiogram. Patient has poor prognosis. Plan discussed with: Patient, Other (Nurses) Date of Service: Feb 26, 2024 Billing Provider: LULA PENA MD Cardiology Common Codes: [id number] INP/OBS CARE (High), [id number] C ARE 30-74 MIN VY MAGANA RESIDENT Feb 26, 2024 11:38
--- NOTE | 2024-02-26 11:53 | DVH ---
DATE:02/26/2024 PROCEDURE: ULTRASOUND GUIDED THORACENTESIS USING TEMPORARY CATHETER HISTORY: 59 Male with right requiring thoracentesis. DOCUMENTATION: Informed consent was obtained and a procedural time out was performed. TECHNIQUE: Ultrasound was used to locate the right pleural fluid collection with an image archived in the PACS. The skin over the right posterior hemithorax was sterilely prepped, draped, and infiltrate d with 1% lidocaine. Under real time ultrasound guidance, the right pleural space was accessed with a 19-gauge Yueh needle and connected to Vacutainers. The Yueh catheter was advanced, the needle was re moved and the temporary catheter was advanced and connected to the Vacutainer. Approximately 1.4 lite rs of pleural fluid was removed. The temporary catheter was removed and sterile dressings were applie d. FINDINGS: Ultrasound demonstrates a right pleural effusion. Imaging confirms the needle tip within th e fluid. Post thoracentesis imaging demonstrates no significant residual. IMPRESSION: 1. SUCCESSFUL ULTRASOUND GUIDED THORACENTESIS.
[2024-02-26 12:00] VITALS: PULSE 78; RESP 15; O2SAT 100
--- NOTE | 2024-02-26 12:02 | DVH ---
NUCLEAR MEDICINE VENTILATION/PERFUSION LUNG SCAN. INDICATION: Dyspnea COMPARISON: None TECHNIQUE: Following intravenous demonstration of 5 millicuries of technetium 99m MAA, and inhalati on of 8.5 mCi of Xe 133 scintigrams were obtained in multiple projections of the lungs. FINDINGS: There is normal uptake of radionuclide on both the ventilation and perfusion portions of the examinat ion. No mismatched perfusion defects are demonstrated. Uptake is normally homogeneous. IMPRESSION: Low probability for PE.
--- NOTE | 2024-02-26 12:12 | DVHINCON2 ---
Date of service: Feb 26, 2024 Referring Physician Loy Best, nurse practitioner Reason for Consultation Acute kidney injury History of Present Illness Patient is 59-year-old male with past medical history significant for polysubstance abuse is admitted for worsening shortness of breath and bilateral lower extremity edema. On admission patient found to have elevated BUN and creatinine nephrology is consulted for acute kidney injury Past Medical History Polysubstance abuse Past Surgical History Patient denies Allergies: Coded Allergies: NO KNOWN ALLERGIES (Unverified , 10/11/10) Current Medications Current Medications Medications (Trade) Dose Ordered Sig/Jose Antonio Route PRN Reason Start Time Stop Time Status Last Admin Diltiazem HCl 100 ml @ 5 mls/hr Q20H IV 02/25/24 21:00 02/26/24 03:40 DC 02/25/24 21:30 Carvedilol (Coreg Tablet) 6.25 mg Q12HR PO 02/25/24 22:00 02/26/24 09:48 Atorvastatin Calcium (Lipitor) 10 mg HS PO 02/25/24 22:00 02/25/24 22:05 Aspirin 162 mg DAILY PO 02/26/24 10:00 02/26/24 09:49 Amlodipine Besylate (Norvasc Tablet) 5 mg DAILY PO 02/26/24 10:00 Hold 02/26/24 09:49 Furosemide (Lasix Injection) 20 mg BIDD IV 02/26/24 06:00 02/26/24 11:36 DC 02/26/24 06:10 Temazepam (Restoril) 15 mg QHSP PRN PO FOR INSOMNIA 02/25/24 21:00 Ondansetron HCl (Zofran) 4 mg Q4HP PRN IV NAUSEA / VOMITING 02/25/24 21:00 Acetaminophen (Tylenol Tablet) 650 mg Q6HP PRN PO PAIN SCALE 1-3 OR TEMP>100.4 02/25/24 21:00 Nitroglycerin (Ntrostat Sublingual) 0.4 mg Q5MINP PRN SL FOR CHEST PAIN 02/25/24 21:00 Morphine Sulfate 2 mg Q30M PRN IV FOR CHEST PAIN 02/25/24 21:00 Ceftriaxone Sodium 50 ml @ 100 mls/hr Q24H IV 02/26/24 21:00 Furosemide (Lasix Injection) 40 mg BIDD IV 02/26/24 11:45 02/26/24 13:20 Review of Systems All 12 item review of systems reviewed with the patient nonsignificant except what is mentioned in the history of present illness H&P Exam Vital Signs/I&O Vital Sign Date Time Temp Pulse Resp B/P (MAP) Pulse Ox O2 Delivery O2 Flow Rate FiO2 02/26/24 13:20 130/86 02/26/24 12:00 78 18 99 02/26/24 12:00 Nasal Cannula* 2 28 02/26/24 08:00 97.6 97.6 Intake and Output 02/25/24 02/26/24 19:00 07:00 Intake Total 262.5 ml Output Total 150 ml Balance 112.5 ml Intake IV Total 262.5 ml Output Urine Total 150 ml Physical Exam Patient is awake alert appeared in no acute distress Lungs bibasilar crackles Cardiac exam regular rate and rhythm GI soft nontender normal Extremity 2+ edema Neuro nonfocal Labs/Diagnostic Data Labs/Diagnostic Data Laboratory Tests Test 02/26/24 11:15 02/26/24 10:00 02/26/24 09:36 02/26/24 03:33 Range/Units Body Fluid pH 8.0 Vitamin B12 Level 1854 H 211-911 pg/mL Vitamin D 25-Hydroxy 33.3 30.0-100 ng/mL Prothrombin Time 14.1 H 9.3-11.8 sec Prothrombin Time INR 1.36 H 0.9-1.15 Activated Partial Thromboplast Time 29.8 24.5-34.5 SEC Lactic Acid Level 1.0 0.4-2.0 mmol/L White Blood Count 8.4 4.4-10.8 10^3/uL Red Blood Count 4.52 4.5-5.90 10^6/uL Hemoglobin 13.9 13.5-17.5 g/dL Hematocrit 41.7 # 41.0-53.0 % Mean Corpuscular Volume 92.1 80.0-100.0 fL Mean Corpuscular Hemoglobin 30.6 28.0-32.0 pg Mean Corpuscular Hemoglobin Concent 33.3 32.0-36.0 g/dL Red Cell Distribution Width 16.3 H 11.8-14.3 % Platelet Count 256 140-450 10^3/uL Mean Platelet Volume 7.8 6.9-10.8 fL Neutrophils (%) (Auto) 74.9 37.0-80.0 % Lymphocytes (%) (Auto) 16.1 10.0-50.0 % Monocytes (%) (Auto) 7.9 0.0-12.0 % Eosinophils (%) (Auto) 0.1 0.0-7.0 % Basophils (%) (Auto) 1.0 0.0-2.0 % Neutrophils # (Auto) 6.3 1.6-8.6 10 ^3/uL Lymphocytes # (Auto) 1.3 0.4-5.4 10 ^3/uL Monocytes # (Auto) 0.7 0-1.3 10 ^3/uL Eosinophils # (Auto) 0 0-0.8 10 ^3/uL Basophils # (Auto) 0.1 0-0.2 10 ^3/uL Nucleated Red Blood Cells 0.0 % Sodium Level 136 136-145 mmol/L Potassium Level 5.1 3.5-5.1 mmol/L Chloride Level 100 98-107 mmol/L Carbon Dioxide Level 28 20-31 mmol/L Anion Gap 8 5-15 Blood Urea Nitrogen 32 H 9-23 mg/dL Creatinine 2.14 H 0.700-1.30 mg/dL Glomerular Filtration Rate Calc 35 >90 mL/min BUN/Creatinine Ratio 15.0 10.0-20.0 Serum Glucose 92 74-106 mg/dL Hemoglobin A1c 5.5 <5.7 % A1C Calcium Level 9.0 8.7-10.4 mg/dL Phosphorus Level 5.7 H 2.4-5.1 mg/dL Magnesium Level 2.3 1.6-2.6 mg/dL Total Bilirubin 1.7 H 0.2-1.0 mg/dL Direct Bilirubin 0.8 H <0.3 mg/dL Aspartate Amino Transferase (AST) 238 H 13-40 U/L Alanine Aminotransferase (ALT) 183 H 7-40 U/L Alkaline Phosphatase 93 46-116 U/L Total Protein 6.3 5.7-8.2 g/dL Albumin 3.0 L 3.2-4.8 g/dL Triglycerides Level 76 < 150 mg/dL Cholesterol Level 118 < 200 mg/dL LDL Cholesterol 91 < 100 mg/dL HDL Cholesterol 25 L 40-59 mg/dL Thyroid Stimulating Hormone (TSH) 2.45 0.55-4.78 uIU/mL Parathyroid Hormone (Intact) 105.5 H 18.4-80.1 pg/mL Test 02/25/24 23:22 02/25/24 20:46 02/25/24 20:23 02/25/24 20:19 Range/Units Potassium Level 4.8 3.5-5.1 mmol/L SARS-CoV-2 Antigen (Rapid) Negative NEGATIVE Urine Color Yellow Yellow Urine Clarity Turbid H Clear Urine pH 5.0 5.0-9.0 Urine Specific [place] 1.011 1.001-1.035 Urine Protein 1+ H Negative Urine Ketones Negative Negative Urine Blood Negative Negative /uL Urine Nitrite Negative Negative Urine Bilirubin Negative Negative Urine Urobilinogen Normal Negative mg/dL Urine Leukocyte Esterase 2+ Negative /uL Urine RBC 2 0 - 3 /hpf Urine WBC 30 0 - 3 /hpf Urine Squamous Epithelial Cells Few <5 /hpf Urine Amorphous Crystals Few None Seen /hpf Urine Bacteria Few H None Seen /hpf Urine Hyaline Casts Few 0 - 2 /lpf Urine Mucus Few None Seen Urine Glucose Normal Normal mg/dL Urine Opiates Screen Neg NEGATIVE Urine Fentanyl Screen Neg NEGATIVE Urine Barbiturates Screen Neg NEGATIVE Urine Phencyclidine Screen Neg NEGATIVE Urine Amphetamines Screen Neg NEGATIVE Urine Benzodiazepines Screen Neg NEGATIVE Urine Cocaine Screen Neg NEGATIVE Urine Cannabinoids Screen Pos NEGATIVE Lactic Acid Level 2.0 0.4-2.0 mmol/L Troponin I High Sensitivity 123 *H </=54 ng/L Test 02/25/24 18:37 02/25/24 17:26 Range/Units Troponin I High Sensitivity 120 *H 117 *H </=54 ng/L White Blood Count 8.0 4.4-10.8 10^3/uL Red Blood Count 5.25 4.5-5.90 10^6/uL Hemoglobin 16.1 13.5-17.5 g/dL Hematocrit 48.2 41.0-53.0 % Mean Corpuscular Volume 91.9 80.0-100.0 fL Mean Corpuscular Hemoglobin 30.8 28.0-32.0 pg Mean Corpuscular Hemoglobin Concent 33.5 32.0-36.0 g/dL Red Cell Distribution Width 16.2 H 11.8-14.3 % Platelet Count 302 140-450 10^3/uL Mean Platelet Volume 7.9 6.9-10.8 fL Neutrophils (%) (Auto) 76.6 37.0-80.0 % Lymphocytes (%) (Auto) 14.0 10.0-50.0 % Monocytes (%) (Auto) 8.5 0.0-12.0 % Eosinophils (%) (Auto) 0.3 0.0-7.0 % Basophils (%) (Auto) 0.6 0.0-2.0 % Neutrophils # (Auto) 6.2 1.6-8.6 10 ^3/uL Lymphocytes # (Auto) 1.1 0.4-5.4 10 ^3/uL Monocytes # (Auto) 0.7 0-1.3 10 ^3/uL Eosinophils # (Auto) 0 0-0.8 10 ^3/uL Basophils # (Auto) 0 0-0.2 10 ^3/uL Nucleated Red Blood Cells 0.1 % D-Dimer, Quantitative 3.58 H 0.0-0.49 mg/L FEU Sodium Level 133 L 136-145 mmol/L Potassium Level 5.7 *H 3.5-5.1 mmol/L Chloride Level 100 98-107 mmol/L Carbon Dioxide Level 27 20-31 mmol/L Anion Gap 6 5-15 Blood Urea Nitrogen 40 H 9-23 mg/dL Creatinine 2.20 H 0.700-1.30 mg/dL Glomerular Filtration Rate Calc 34 >90 mL/min BUN/Creatinine Ratio 18.2 10.0-20.0 Serum Glucose 107 H 74-106 mg/dL Lactic Acid Level 2.2 *H 0.4-2.0 mmol/L Calcium Level 9.7 8.7-10.4 mg/dL Magnesium Level 2.5 1.6-2.6 mg/dL Total Bilirubin 2.5 H 0.2-1.0 mg/dL Aspartate Amino Transferase (AST) 205 H 13-40 U/L Alanine Aminotransferase (ALT) 166 H 7-40 U/L Alkaline Phosphatase 116 46-116 U/L B-Type Natriuretic Peptide 2117.74 0-100 pg/mL Total Protein 7.3 5.7-8.2 g/dL Albumin 3.7 3.2-4.8 g/dL Assessment Acute kidney injury superimposed Chronic Kidney Disease secondary Hemodynamic mediated Congestive heart failure exacerbation NSTEMI Hyperkalemia History of polysubstance abuse Hypertensive urgency Recommendations Closely monitor fluid and electrolytes Avoid nephrotoxic medications Cruz catheter Strict I&Os Check urine electrolytes and urine protein excretion Check kidney ultrasound Emergent medical treatment for hyperkalemia I agree with diuresis Blood pressure control Renal diet Cardiology consult We will continue to follow Patient seen and examined by myself in ER bed one. I discussed my plan of care with the patient and primary nurse at the bedside I would like to thank Loy for the consult, we will continue to follow up Plan discussed with: Patient CHETNA SHARPE MD Feb 26, 2024 12:12
--- NOTE | 2024-02-26 12:51 | DVH ---
Renal ultrasound HISTORY: alexis TECHNIQUE: 2 D ultrasound was performed with transaxial and longitudinal images. FINDINGS: Right kidney measures 10.2 and left kidney measures 10.7. No renal masses, stones or hydron ephrosis. Urinary bladder unremarkable. IMPRESSION: 1. No renal masses, stones or signs of obstruction
[2024-02-26 14:11] LABS: Body Fluid Polymorphonuclear 15 % (0-25); Body Fluid Red Blood Cells 948 CUMM (0-2000); Body Fluid White Blood Cells 383 CUMM (0-200)
--- NOTE | 2024-02-26 16:07 | DVHPN2 ---
Subjective Denies any symptoms. Reviewed: Care Plan, H&P, Labs, Medications Changes from previous H/P or p: No Changes General: Per HPI Objective Vitals Vital Signs Date Time Temp Pulse Resp B/P (MAP) Pulse Ox O2 Delivery O2 Flow Rate FiO2 02/26/24 14:00 83 18 131/83 (99) 99 02/26/24 12:00 Nasal Cannula* 2 28 02/26/24 08:00 97.6 97.6 Intake/Output Intake and Output 02/26/24 07:00 Intake Total 262.5 ml Output Total 150 ml Balance 112.5 ml Intake IV Total 262.5 ml Output Urine Total 150 ml General Appearance: Alert, Oriented X3, Cooperative, No acute distress HEENT: Atraumatic, PERRLA Lungs: Normal air movement, Other (Decreased breath sounds at bases) Cardiovascular: Normal S1, Normal S2 Abdomen: Normal bowel sounds, Soft, No tenderness, No hepatospenomegaly Musculoskeletal: Normal sensory function, Normal motor function Neuro: Normal gait, Normal speech Psych/Mental Status: Mental status NL, Mood NL Medications Current Medications Medications Dose Ordered Sig/Jose Antonio Route Start Time Stop Time Status Last Admin Dose Admin Carvedilol 6.25 mg Q12HR PO 02/25/24 22:00 02/26/24 09:48 6.25 MG Atorvastatin Calcium 10 mg HS PO 02/25/24 22:00 02/25/24 22:05 10 MG Aspirin 162 mg DAILY PO 02/26/24 10:00 02/26/24 09:49 162 MG Amlodipine Besylate 5 mg DAILY PO 02/26/24 10:00 Hold 02/26/24 09:49 5 MG Temazepam 15 mg QHSP PRN PO 02/25/24 21:00 Ondansetron HCl 4 mg Q4HP PRN IV 02/25/24 21:00 Acetaminophen 650 mg Q6HP PRN PO 02/25/24 21:00 Nitroglycerin 0.4 mg Q5MINP PRN SL 02/25/24 21:00 Morphine Sulfate 2 mg Q30M PRN IV 02/25/24 21:00 Ceftriaxone Sodium 50 ml @ 100 mls/hr Q24H IV 02/26/24 21:00 Furosemide 40 mg BIDD IV 02/26/24 11:45 02/26/24 13:20 40 MG Laboratory Results Laboratory Tests 02/26/24 03:33 Chemistry Test 02/25/24 17:26 02/26/24 03:33 Albumin 3.7 g/dL (3.2-4.8) 3.0 g/dL (3.2-4.8) L Calcium Level 9.7 mg/dL (8.7-10.4) 9.0 mg/dL (8.7-10.4) Magnesium Level 2.5 mg/dL (1.6-2.6) 2.3 mg/dL (1.6-2.6) Total Protein 7.3 g/dL (5.7-8.2) 6.3 g/dL (5.7-8.2) Phosphorus Level 5.7 mg/dL (2.4-5.1) H Coagulation Test 02/25/24 17:26 02/26/24 09:36 D-Dimer, Quantitative 3.58 mg/L FEU (0.0-0.49) H Prothrombin Time 14.1 sec (9.3-11.8) H Prothrombin Time INR 1.36 (0.9-1.15) H Activated Partial Thromboplast Time 29.8 SEC (24.5-34.5) Lipid panel Test 02/26/24 03:33 Cholesterol Level 118 mg/dL (< 200) HDL Cholesterol 25 mg/dL (40-59) L Triglycerides Level 76 mg/dL (< 150) Cardiac Markers Test 02/25/24 17:26 B-Type Natriuretic Peptide 2117.74 pg/mL (0-100) LFT Test 02/25/24 17:26 02/26/24 03:33 Alanine Aminotransferase (ALT) 166 U/L (7-40) H 183 U/L (7-40) H Alkaline Phosphatase 116 U/L (46-116) 93 U/L (46-116) Aspartate Amino Transferase (AST) 205 U/L (13-40) H 238 U/L (13-40) H Total Bilirubin 2.5 mg/dL (0.2-1.0) H 1.7 mg/dL (0.2-1.0) H Direct Bilirubin 0.8 mg/dL (<0.3) H HgA1c, TSH Test 02/26/24 03:33 Hemoglobin A1c 5.5 % A1C (<5.7) Thyroid Stimulating Hormone (TSH) 2.45 uIU/mL (0.55-4.78) Urinalysis Test 02/25/24 20:23 Urine Color Yellow (Yellow) Urine Clarity Turbid (Clear) H Urine pH 5.0 (5.0-9.0) Urine Specific [place] 1.011 (1.001-1.035) Urine Protein 1+ (Negative) H Urine Ketones Negative (Negative) Urine Blood Negative /uL (Negative) Urine Nitrite Negative (Negative) Urine Bilirubin Negative (Negative) Urine Urobilinogen Normal mg/dL (Negative) Urine Leukocyte Esterase 2+ /uL (Negative) Urine RBC 2 /hpf (0 - 3) Urine WBC 30 /hpf (0 - 3) Urine Squamous Epithelial Cells Few /hpf (<5) Urine Amorphous Crystals Few /hpf (None Seen) Urine Bacteria Few /hpf (None Seen) H Urine Hyaline Casts Few /lpf (0 - 2) Urine Mucus Few (None Seen) Urine Glucose Normal mg/dL (Normal) Labs and/or images reviewed: Labs reviewed by me, Image(s) reviewed by me Assessment/Plan Assessment/Plan Impression: -acute decompensated systolic and diastolic heart failure -acute kidney injury, probable cardiorenal failure -history of methamphetamine use -acute hypoxic respiratory failure -nicotine dependence -Transaminitis Plan: -Consults: Cardiology, Nephrology -IV diuresis -Rate control with BB therapy -Thoracentesis -Repeat labs, x-ray in AM. Total time spent with patient discussing and formulating plan of care: 35 minutes. This medical document was created using an electronic medical record system with [employer] dictation system. Although this document has been carefully reviewed, there may still be some phonetic and typographical errors. These areas are purely typographical due to imperfections of the software programs, and do not reflect any compromise in the patient's medical care. Plan discussed with: Patient, Other (RN) Date of Service: Feb 26, 2024 Billing Provider: RIO RIDER NP Common Visit Codes: [id number] INP/OBS CARE(HIGH) RIO RIDER NP Feb 26, 2024 16:07
[2024-02-26 19:30] VITALS: PULSE 97; RESP 20; O2SAT 95
[2024-02-26] MEDS: cefTRIAXone 1GM/50ML D5W 50 ML IV SCH (21:00)
[2024-02-27] VITALS (9 sets, daily range): BP systolic 118–153; BP diastolic 85–109; PULSE 85–101; RESP 16–89; TEMP 97.6–98.3; O2SAT 94–98
--- NOTE | 2024-02-27 08:17 | DVHPNRES ---
Progress Note Date Seen: Feb 27, 2024 Resident Creating Document: VY MAGANA RESIDENT Medical Necessity Reason Pt with a Central, PICC or Fol: No Subjective Review of Systems Mateo Pallavi this is a 59-year-old male patient who presents to ED with complaint of progressive dyspnea from functional class II to functional class IV three days before his admission, associated he did present nonproductive cough, leg swelling, exertional dyspnea, orthopnea and paroxysmal nocturnal dyspnea. Denies palpitation, syncope, fever, chills, chest pain, nausea, vomiting, diarrhea, bleeding, dysuria and motor or sensory deficits. Cardiology was consulted due to dyspnea and abnormal EKG (patient had atrial fibrillation/atrial flutter associated with RBBB, had received diltiazem in ED. Past medical history: GERD Surgical history: Tympanocentesis with tube placement when young Family history: Father had hypertension Social history: Lives in [place] with his father. Currently smokes tobacco (30 pack-year history of smoking), does not smoke marijuana but consumes food with CBD, normally drinks 6-8 beers a day, but has not been drinking for the past seven days, abuses mass (last dose given on 02/21/2024). Denies any other drug abuse. Allergies: Denies Home medication: Denies Patient seen and examined at bedside. Currently patient feels better, is less short of breath. Continues with oxygen therapy on nasal cannula at 2 liters/minute Objective vital signs Vital Sign Date Time Temp Pulse Resp B/P (MAP) Pulse Ox O2 Delivery O2 Flow Rate FiO2 02/27/24 05:44 153/91 02/27/24 05:00 97.6 91 18 97 97.6 02/27/24 00:55 Nasal Cannula* 2 28 Total Intake and Output 02/26/24 02/26/24 02/27/24 15:00 23:00 07:00 Intake Total 50 ml 300 ml Output Total 300 ml 900 ml Balance -300 ml -850 ml 300 ml medications Current Medications Medications Dose Ordered Sig/Jose Antonio Route Start Time Stop Time Status Last Admin Dose Admin Carvedilol 6.25 mg Q12HR PO 02/25/24 22:00 02/26/24 22:00 6.25 MG Atorvastatin Calcium 10 mg HS PO 02/25/24 22:00 02/26/24 22:00 10 MG Amlodipine Besylate 5 mg DAILY PO 02/26/24 10:00 Hold 02/26/24 09:49 5 MG Temazepam 15 mg QHSP PRN PO 02/25/24 21:00 Ondansetron HCl 4 mg Q4HP PRN IV 02/25/24 21:00 Acetaminophen 650 mg Q6HP PRN PO 02/25/24 21:00 Nitroglycerin 0.4 mg Q5MINP PRN SL 02/25/24 21:00 Morphine Sulfate 2 mg Q30M PRN IV 02/25/24 21:00 Ceftriaxone Sodium 50 ml @ 100 mls/hr Q24H IV 02/26/24 21:00 02/26/24 21:00 100 MLS/HR Furosemide 40 mg BIDD IV 02/26/24 11:45 02/27/24 05:44 40 MG Aspirin 81 mg DAILY PO 02/27/24 10:00 Enoxaparin Sodium 90 mg Q12HR SC 02/27/24 10:00 UNV Examination Patient lying in bed, in no acute distress General: Lucid, afebrile, mucosae are moist Cardiovascular: Tachycardic, normal S1 and S2. No murmurs, gallops or rubs. JVD 3/3 Respiratory: Normal ventilation mechanics. Bibasilar rales. Rest of lung auscultation is clear Abdomen: Soft, nontender, no organomegaly, normal bowel sounds. Umbilical hernia and large bilateral inguinal hernia. MSK/skin: Mobilizes 4 limbs. Skin is dry and warm. Bilateral suprapatellar pitting edema +3 Neurological: Oriented in 3 spheres. No motor no sensitive deficits. 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 Currently on furosemide 40 mg IV t.i.d. Troponin probably secondary to CHF and recent methamphetamine abuse. Completed right-sided thoracentesis with debit of 1.4 L of transudate (per light criteria). We will start enoxaparin for atrial fibrillation/atrial flutter. Optimize loading conditions We will started GDMT once echocardiogram is completed and JEFFREY resolves Strongly counseled on polysubstance abuse cessation. IV antibiotics per hospitalist Discussed case with Dr. Tobias, patient and nurses: Patient probably has methamphetamine associated cardiomyopathy with HFrEF (pending echocardiogram), requires IV diuretics, completed thoracentesis, started enoxaparin treatment for AFib/a flutter, pending optimization of GDMT. Strongly counseled patient on polysubstance abuse cessation. Recommend not using calcium channel blockers in this patient, until obtaining echocardiogram. Patient has poor prognosis. Plan discussed with: Patient, Other (Nurses) My Orders My Orders Orders - VY MAGANA Procedure Category Date Status Time Thoracentesis US 02/26/24 Resulted 08:43 Furosemide Injection PHA 02/26/24 In Process (Lasix Injection) 11:45 Aspirin Tablet PHA 02/27/24 In Process 10:00 Enoxaparin Sodium PHA 02/27/24 In Process (Lovenox) 10:00 PTPTT LAB 02/27/24 Logged 08:03 Phosphorus LAB 02/27/24 Logged 08:03 Magnesium LAB 02/27/24 Logged 08:03 Comprehensive LAB 02/27/24 Logged Metabolic Panel 08:03 Complete Blood Count LAB 02/27/24 Logged 08:03 Lactate Dehydrogenase LAB 02/27/24 Logged 08:03 Visit Coding Cardiology RES Date of Service: Feb 27, 2024 Billing Provider: LULA TOBIAS MD Cardiology Common Codes: [id number] HOSP CARE(High, [id number] CARE 30-74 MIN VY MAGANA RESIDENT Feb 27, 2024 08:17
[2024-02-27] MEDS: ASPirin 81 mg TAB PO SCH (09:50)
[2024-02-27] MEDS: hydrALAZINE HCL 10 MG TAB PO ONE (09:50)
[2024-02-27] MEDS: ENOXAPARIN SOD 100 MG/1 ML SYRINGE SC SCH (09:51)
[2024-02-27 11:07] LABS: Basophils # (auto) 0 10 ^3/uL (0-0.2); Basophils % (auto) 0.4 % (0.0-2.0); Eosinophils # (auto) 0.1 10 ^3/uL (0-0.8); Hematocrit 41.7 % (41.0-53.0); Hemoglobin 13.9 g/dL (13.5-17.5); Lymphocytes # (auto) 1.2 10 ^3/uL (0.4-5.4); Lymphocytes % (auto) 12.4 % (10.0-50.0); Mean Corpuscular Hemoglobin 30.7 pg (28.0-32.0); Mean Corpuscular Hgb Conc. 33.3 g/dL (32.0-36.0); Mean Corpuscular Volume 92.2 fL (80.0-100.0); Monocytes # (auto) 0.8 10 ^3/uL (0-1.3); Monocytes % (auto) 8.7 % (0.0-12.0); Neutrophils # (auto) 7.4 10 ^3/uL (1.6-8.6); Neutrophils % (auto) 77.5 % (37.0-80.0); Nucleated Red Blood Cells % 0.2 %; Platelet Count (auto) 262 10^3/uL (140-450); Red Blood Cells 4.52 10^6/uL (4.5-5.90); Red Cell Distribution Width 16.7 % (11.8-14.3); White Blood Cell 9.6 10^3/uL (4.4-10.8)
[2024-02-27 11:16] LABS: INR 1.29 (0.9-1.15); Partial Thromboplastin Time 30.1 SEC (24.5-34.5); Prothrombin Time 13.4 sec (9.3-11.8)
[2024-02-27 11:28] LABS: Alanine Aminotransferase 121 U/L (7-40); Alkaline Phosphatase 87 U/L (46-116); Anion Gap 7 (5-15); Aspartate Aminotransferase 94 U/L (13-40); BUN/Creatinine Ratio 18.3 (10.0-20.0); Bilirubin, Total 0.9 mg/dL (0.2-1.0); Blood Urea Nitrogen 37 mg/dL (9-23); Calcium 8.6 mg/dL (8.7-10.4); Carbon Dioxide 30 mmol/L (20-31); Chloride 101 mmol/L (98-107); Glucose 118 mg/dL (74-106); Phosphorus 3.7 mg/dL (2.4-5.1); Potassium 3.4 mmol/L (3.5-5.1); Sodium 138 mmol/L (136-145); Total Protein 6.1 g/dL (5.7-8.2)
--- NOTE | 2024-02-27 11:57 | DVHPN2 ---
Subjective Denies any symptoms. Reviewed: Care Plan, H&P, Labs, Medications Changes from previous H/P or p: No Changes General: Per HPI Objective Vitals Vital Signs Date Time Temp Pulse Resp B/P (MAP) Pulse Ox O2 Delivery O2 Flow Rate FiO2 02/27/24 09:50 139/90 02/27/24 09:49 98 02/27/24 08:00 18 98 Nasal Cannula* 2 28 02/27/24 05:00 97.6 97.6 Intake/Output Intake and Output 02/27/24 07:00 Intake Total 350 ml Output Total 1200 ml Balance -850 ml Intake Oral 300 ml IV Total 50 ml Output Urine Total 1200 ml # Voids 1 General Appearance: Alert, Oriented X3, Cooperative, No acute distress HEENT: Atraumatic, PERRLA Lungs: Normal air movement, Other (Decreased breath sounds at bases) Cardiovascular: Normal S1, Normal S2 Abdomen: Normal bowel sounds, Soft, No tenderness, No hepatospenomegaly Musculoskeletal: Normal sensory function, Normal motor function Neuro: Normal gait, Normal speech Psych/Mental Status: Mental status NL, Mood NL Medications Current Medications Medications Dose Ordered Sig/Jose Antonio Route Start Time Stop Time Status Last Admin Dose Admin Carvedilol 6.25 mg Q12HR PO 02/25/24 22:00 02/27/24 09:49 6.25 MG Atorvastatin Calcium 10 mg HS PO 02/25/24 22:00 02/26/24 22:00 10 MG Amlodipine Besylate 5 mg DAILY PO 02/26/24 10:00 Hold 02/26/24 09:49 5 MG Temazepam 15 mg QHSP PRN PO 02/25/24 21:00 Ondansetron HCl 4 mg Q4HP PRN IV 02/25/24 21:00 Acetaminophen 650 mg Q6HP PRN PO 02/25/24 21:00 Nitroglycerin 0.4 mg Q5MINP PRN SL 02/25/24 21:00 Morphine Sulfate 2 mg Q30M PRN IV 02/25/24 21:00 Ceftriaxone Sodium 50 ml @ 100 mls/hr Q24H IV 02/26/24 21:00 02/26/24 21:00 100 MLS/HR Aspirin 81 mg DAILY PO 02/27/24 10:00 02/27/24 09:50 81 MG Enoxaparin Sodium 90 mg Q12HR SC 02/27/24 10:00 02/27/24 09:51 90 MG Hydralazine HCl 10 mg Q8HR PO 02/27/24 14:00 Furosemide 40 mg TID IV 02/27/24 14:00 Potassium Bicarbonate 25 meq DAILY PO 02/28/24 10:00 UNV Laboratory Results Laboratory Tests 02/27/24 10:47 Chemistry Test 02/27/24 10:47 Albumin 3.0 g/dL (3.2-4.8) L Calcium Level 8.6 mg/dL (8.7-10.4) L Magnesium Level 2.0 mg/dL (1.6-2.6) Phosphorus Level 3.7 mg/dL (2.4-5.1) Total Protein 6.1 g/dL (5.7-8.2) Coagulation Test 02/27/24 10:47 Prothrombin Time 13.4 sec (9.3-11.8) H Prothrombin Time INR 1.29 (0.9-1.15) H Activated Partial Thromboplast Time 30.1 SEC (24.5-34.5) LFT Test 02/27/24 10:47 Alanine Aminotransferase (ALT) 121 U/L (7-40) H Alkaline Phosphatase 87 U/L (46-116) Aspartate Amino Transferase (AST) 94 U/L (13-40) H Total Bilirubin 0.9 mg/dL (0.2-1.0) Urinalysis Test 02/25/24 20:23 Urine Color Yellow (Yellow) Urine Clarity Turbid (Clear) H Urine pH 5.0 (5.0-9.0) Urine Specific [place] 1.011 (1.001-1.035) Urine Protein 1+ (Negative) H Urine Ketones Negative (Negative) Urine Blood Negative /uL (Negative) Urine Nitrite Negative (Negative) Urine Bilirubin Negative (Negative) Urine Urobilinogen Normal mg/dL (Negative) Urine Leukocyte Esterase 2+ /uL (Negative) Urine RBC 2 /hpf (0 - 3) Urine WBC 30 /hpf (0 - 3) Urine Squamous Epithelial Cells Few /hpf (<5) Urine Amorphous Crystals Few /hpf (None Seen) Urine Bacteria Few /hpf (None Seen) H Urine Hyaline Casts Few /lpf (0 - 2) Urine Mucus Few (None Seen) Urine Glucose Normal mg/dL (Normal) Microbiology Microbiology Date/Time Source Procedure Growth Status 02/26/24 11:15 Pleural Fluid Gram Stain Pending Resulted 02/26/24 11:15 Pleural Fluid Aerobic Culture - Preliminary Resulted Labs and/or images reviewed: Labs reviewed by me, Image(s) reviewed by me Assessment/Plan Assessment/Plan Impression: -acute decompensated systolic and diastolic heart failure -acute kidney injury, probable cardiorenal failure -history of methamphetamine use -acute hypoxic respiratory failure -nicotine dependence -Transaminitis Plan: Events: No events overnight. -Echocardiogram pending: Preliminary with severe aspirin decompensated EF -Consults: Cardiology, Nephrology -IV diuresis -maximize heart failure medication. Cardiology to evaluate need for anticoagulation with CHADS-VASc score probably 2 -Repeat labs, x-ray in AM. Total time spent with patient discussing and formulating plan of care: 35 minutes. This medical document was created using an electronic medical record system with [employer] dictation system. Although this document has been carefully reviewed, there may still be some phonetic and typographical errors. These areas are purely typographical due to imperfections of the software programs, and do not reflect any compromise in the patient's medical care. Plan discussed with: Patient, Other (RN) My Orders Orders - RIO RIDER NP Procedure Category Date Status Time Potassium Effervesent PHA 02/28/24 Logged Tab (Klor-Con/Ef) 10:00 Basic Metabolic Panel LAB 02/28/24 Verified 04:00 Magnesium LAB 02/28/24 Verified 04:00 Date of Service: Feb 27, 2024 Billing Provider: RIO RIDER NP Common Visit Codes: [id number] INP/OBS CARE(HIGH) RIO RIDER NP Feb 27, 2024 11:57
[2024-02-27 13:07] LABS: Protein, Body Fluid 1.8 g/dL (.)
[2024-02-27] MEDS: FUROSEMIDE 40 MG/4 ML VIAL IV SCH (13:47)
[2024-02-27] MEDS: hydrALAZINE HCL 10 MG TAB PO SCH (13:47)
--- NOTE | 2024-02-27 14:18 | DVHPN2 ---
Progress Note Date Seen: Feb 27, 2024 Medical Necessity Reason Pt with a Central, PICC or Fol: No Subjective Review of Systems Pt resting in bed, in no acute distress. Patient reports: No new complaints Changes from previous H/P or p: No Changes Objective vital signs Vital Sign Date Time Temp Pulse Resp B/P (MAP) Pulse Ox O2 Delivery O2 Flow Rate FiO2 02/27/24 13:47 143/82 02/27/24 12:47 97.8 85 18 98 97.8 02/27/24 08:00 Nasal Cannula* 2 28 Total Intake and Output 02/26/24 02/26/24 02/27/24 14:59 22:59 06:59 Intake Total 50 ml 300 ml Output Total 300 ml 900 ml Balance -300 ml -850 ml 300 ml medications Current Medications Medications Dose Ordered Sig/Jose Antonio Route Start Time Stop Time Status Last Admin Dose Admin Carvedilol 6.25 mg Q12HR PO 02/25/24 22:00 02/27/24 09:49 6.25 MG Atorvastatin Calcium 10 mg HS PO 02/25/24 22:00 02/26/24 22:00 10 MG Amlodipine Besylate 5 mg DAILY PO 02/26/24 10:00 Hold 02/26/24 09:49 5 MG Temazepam 15 mg QHSP PRN PO 02/25/24 21:00 Ondansetron HCl 4 mg Q4HP PRN IV 02/25/24 21:00 Acetaminophen 650 mg Q6HP PRN PO 02/25/24 21:00 Nitroglycerin 0.4 mg Q5MINP PRN SL 02/25/24 21:00 Morphine Sulfate 2 mg Q30M PRN IV 02/25/24 21:00 Ceftriaxone Sodium 50 ml @ 100 mls/hr Q24H IV 02/26/24 21:00 02/26/24 21:00 100 MLS/HR Aspirin 81 mg DAILY PO 02/27/24 10:00 02/27/24 09:50 81 MG Enoxaparin Sodium 90 mg Q12HR SC 02/27/24 10:00 02/27/24 09:51 90 MG Hydralazine HCl 10 mg Q8HR PO 02/27/24 14:00 02/27/24 13:47 10 MG Furosemide 40 mg TID IV 02/27/24 14:00 02/27/24 13:47 40 MG Potassium Bicarbonate 25 meq DAILY PO 02/28/24 10:00 Examination General: Appears stated age, in no acute distress Pulm: Clear to auscultation bilaterally CVS: RRR, normal S1 and S2 Ext: + BLE edema Neuro: Alert and oriented x4 laboratory and microbiology Laboratory Tests 02/27/24 10:47 Test 02/27/24 10:47 Range/Units Serum Glucose 118 H 74-106 mg/dL Microbiology Date/Time Source Procedure Growth Status 02/26/24 11:15 Pleural Fluid Gram Stain Pending Resulted 02/26/24 11:15 Pleural Fluid Aerobic Culture - Preliminary Resulted Labs and/or images reviewed: Labs reviewed by me Problem List/Assessment/Plan Problem List/Assessment/Plan Acute kidney injury superimposed Chronic Kidney Disease secondary Hemodynamic mediated-ongoing Congestive heart failure exacerbation NSTEMI Hyperkalemia-resolved History of polysubstance abuse Hypertensive urgency Renal U/S IMPRESSION: 1. No renal masses, stones or signs of obstruction Recommendations Serial chemistry panels Continue closely monitoring fluid and electrolytes Avoid nephrotoxic medications Strict I&Os Agree with diuresis Blood pressure control Renal diet Supplemental potassium as needed We will continue to follow Plan discussed with: Patient KIERAN JACKSON FAWN Feb 27, 2024 14:18
[2024-02-27] MEDS: POTASSIUM EFFERVESENT TAB 25 MEQ PO ONE (14:33)
--- NOTE | 2024-02-27 14:51 | DVHSR ---
APPROVED REPORT EXAM: Two-dimensional and M-mode echocardiogram with Doppler and color Doppler. Blood Pressure: 153/91 mmHg INDICATION EF RISK FACTORS Height: 5'8", Weight: 200 DIMENSIONS LVDd5.3 (3.8-5.7cm)LA (2D)4.6 (1.9-4.0cm)Aortic Root3.8 (2.0-3.7cm) LVDs4.7 (2.5-4.0cm)LA (MM) (1.9-4.0cm)Aortic Cusp Exc1.8 (1.5-2.0cm) EF (%) 15.0 (55-70%)Rt. Atrium5.0 (1.9-4.0cm)Asc. Aorta cm IVSd1.5 (0.7-1.1cm)RV (D)4.8 (1.8-2.4cm) PWd1.5 (0.7-1.1cm) Mitral Valve MitralMitral Stenosis E wave1.16m/sMV Mean GR.mmHg E/A ratio0.02D MVAcm2 Aortic Valve Aortic ValveAortic Stenosis V10.69m/Ezra Mean GR.2mmHg V21.09m/Ezra Peak GR.5mmHg LVOT Diameter2.6 (1.8-2.4cm)Doppler AVA3.36cm2 AI P 1/2 Gcwa361.21ms Pulmonic Valve V20.56m/s Tricuspid Valve TR Velocity2.57m/s [id number] Conclusion Severely dilated left ventricle. Severely reduced left ventricular systolic function estimated eject ion fraction 15% there is a global wall akinesia. There is grade 1 diastolic dysfunction. Severely dilated right ventricle. Severely reduced right ventricular systolic function. Is slightly increased right ventricular systolic [id number] mm of mercury Moderately dilated right and left atria. The aortic valve is mildly thickened and sclerotic, there is a mild aortic valve regurgitation. Normal mitral valve structure and function. Normal tricuspid valve structure and function. The pulmonary valve is grossly normal. No pericardial effusion. There is biatrial pleural effusion.
[2024-02-27 16:05] LABS: Protein, Urine 11.5 mg/dL (1-14)
[2024-02-27] MEDS: PANTOPRAZOLE 40 MG TAB PO ONE (17:03)
[2024-02-28] VITALS (8 sets, daily range): BP systolic 122–163; BP diastolic 88–105; PULSE 46–99; RESP 16–20; TEMP 97.5–98.2; O2SAT 91–98
[2024-02-28] MEDS: PANTOPRAZOLE 40 MG TAB PO SCH (06:37)
[2024-02-28 06:40] LABS: Anion Gap 5 (5-15); Carbon Dioxide 33 mmol/L (20-31); Chloride 101 mmol/L (98-107); Potassium 3.4 mmol/L (3.5-5.1); Sodium 139 mmol/L (136-145)
[2024-02-28 06:41] LABS: Calcium 8.6 mg/dL (8.7-10.4)
[2024-02-28 06:46] LABS: BUN/Creatinine Ratio 15.9 (10.0-20.0); Blood Urea Nitrogen 33 mg/dL (9-23); Glucose 115 mg/dL (74-106); Magnesium 2.1 mg/dL (1.6-2.6)
[2024-02-28] MEDS: POTASSIUM EFFERVESENT TAB 25 MEQ PO SCH (09:39)
--- NOTE | 2024-02-28 10:59 | DVHPN2 ---
Reviewed: Care Plan, H&P, Labs, Medications Changes from previous H/P or p: No Changes General: Per HPI Objective Vitals Vital Signs Date Time Temp Pulse Resp B/P (MAP) Pulse Ox O2 Delivery O2 Flow Rate FiO2 02/28/24 09:40 92 149/105 02/28/24 05:00 98.2 20 92 98.2 02/27/24 20:00 Nasal Cannula* 2 28 Intake/Output Intake and Output 02/28/24 07:00 Intake Total 1400 ml Output Total 3075 ml Balance -1675 ml Intake Oral 1400 ml Output Urine Total 3075 ml General Appearance: Alert, Oriented X3, Cooperative, No acute distress HEENT: Atraumatic, PERRLA Lungs: Normal air movement, Other (Decreased breath sounds at bases) Cardiovascular: Normal S1, Normal S2 Abdomen: Normal bowel sounds, Soft, No tenderness, No hepatospenomegaly Musculoskeletal: Normal sensory function, Normal motor function Neuro: Normal gait, Normal speech Psych/Mental Status: Mental status NL, Mood NL Medications Current Medications Medications Dose Ordered Sig/Jose Antonio Route Start Time Stop Time Status Last Admin Dose Admin Atorvastatin Calcium 10 mg HS PO 02/25/24 22:00 02/27/24 21:57 10 MG Temazepam 15 mg QHSP PRN PO 02/25/24 21:00 Ondansetron HCl 4 mg Q4HP PRN IV 02/25/24 21:00 Acetaminophen 650 mg Q6HP PRN PO 02/25/24 21:00 Nitroglycerin 0.4 mg Q5MINP PRN SL 02/25/24 21:00 Morphine Sulfate 2 mg Q30M PRN IV 02/25/24 21:00 Ceftriaxone Sodium 50 ml @ 100 mls/hr Q24H IV 02/26/24 21:00 02/27/24 21:53 100 MLS/HR Aspirin 81 mg DAILY PO 02/27/24 10:00 02/28/24 09:40 81 MG Enoxaparin Sodium 90 mg Q12HR SC 02/27/24 10:00 02/28/24 09:40 90 MG Hydralazine HCl 10 mg Q8HR PO 02/27/24 14:00 02/28/24 06:36 10 MG Furosemide 40 mg TID IV 02/27/24 14:00 02/28/24 07:07 40 MG Potassium Bicarbonate 25 meq DAILY PO 02/28/24 10:00 02/28/24 09:39 25 MEQ Pantoprazole Sodium 40 mg DAILY@0600 PO 02/28/24 06:00 02/28/24 06:37 40 MG Carvedilol 12.5 mg Q12HR PO 02/28/24 22:00 UNV Laboratory Results Laboratory Tests 02/27/24 10:47 02/28/24 05:29 Chemistry Test 02/28/24 05:29 Calcium Level 8.6 mg/dL (8.7-10.4) L Magnesium Level 2.1 mg/dL (1.6-2.6) Urinalysis Test 02/25/24 20:23 02/27/24 15:35 Urine Color Yellow (Yellow) Urine Clarity Turbid (Clear) H Urine pH 5.0 (5.0-9.0) Urine Specific [place] 1.011 (1.001-1.035) Urine Protein 1+ (Negative) H Urine Ketones Negative (Negative) Urine Blood Negative /uL (Negative) Urine Nitrite Negative (Negative) Urine Bilirubin Negative (Negative) Urine Urobilinogen Normal mg/dL (Negative) Urine Leukocyte Esterase 2+ /uL (Negative) Urine RBC 2 /hpf (0 - 3) Urine WBC 30 /hpf (0 - 3) Urine Squamous Epithelial Cells Few /hpf (<5) Urine Amorphous Crystals Few /hpf (None Seen) Urine Bacteria Few /hpf (None Seen) H Urine Hyaline Casts Few /lpf (0 - 2) Urine Mucus Few (None Seen) Urine Glucose Normal mg/dL (Normal) Urine Creatinine 25.00 mg/dL (30.0-125.0) L Urine Sodium 83 mmol/L (40-220) Urine Total Protein 11.5 mg/dL (1-14) Microbiology Microbiology Date/Time Source Procedure Growth Status 02/26/24 11:15 Pleural Fluid Gram Stain Pending Resulted 02/26/24 11:15 Pleural Fluid Aerobic Culture - Preliminary Resulted Labs and/or images reviewed: Labs reviewed by me, Image(s) reviewed by me Assessment/Plan Assessment/Plan Impression: -acute decompensated systolic and diastolic heart failure -acute kidney injury, probable cardiorenal failure -history of methamphetamine use -acute hypoxic respiratory failure -nicotine dependence -Transaminitis Plan: Events: No events overnight. -Echocardiogram pending: Preliminary with severe aspirin decompensated EF -Consults: Cardiology, Nephrology -IV diuresis -maximize heart failure medication. Cardiology to evaluate need for anticoagulation with CHADS-VASc score probably 2 -Repeat labs, x-ray in AM. 02/28/2024: continue with diuresis and weaning down on supplemental O2. Pt does not use O2 at home and not on diuretics. Never been diagnosed with CHF before Total time spent with patient discussing and formulating plan of care: 35 minutes. Plan discussed with: Patient Date of Service: Feb 28, 2024 Billing Provider: LEIGH ASCENCIO DO Common Visit Codes: [id number] INP/OBS CARE(HIGH) LEIGH ASCENCIO DO Feb 28, 2024 10:59
--- NOTE | 2024-02-28 13:27 | DVHPN2 ---
Progress Note Date Seen: Feb 28, 2024 Medical Necessity Reason Pt with a Central, PICC or Fol: No Subjective Patient reports: No new complaints, Feels better Objective vital signs Vital Sign Date Time Temp Pulse Resp B/P (MAP) Pulse Ox O2 Delivery O2 Flow Rate FiO2 02/28/24 09:40 92 149/105 02/28/24 09:00 97.9 16 91 97.9 02/28/24 08:00 Room Air* 0 21 Total Intake and Output 02/27/24 02/27/24 02/28/24 15:00 23:00 07:00 Intake Total 1000 ml 400 ml Output Total 725 ml 650 ml 1700 ml Balance -725 ml 350 ml -1300 ml medications Current Medications Medications Dose Ordered Sig/Jose Antonio Route Start Time Stop Time Status Last Admin Dose Admin Atorvastatin Calcium 10 mg HS PO 02/25/24 22:00 02/27/24 21:57 10 MG Temazepam 15 mg QHSP PRN PO 02/25/24 21:00 Ondansetron HCl 4 mg Q4HP PRN IV 02/25/24 21:00 Acetaminophen 650 mg Q6HP PRN PO 02/25/24 21:00 Nitroglycerin 0.4 mg Q5MINP PRN SL 02/25/24 21:00 Morphine Sulfate 2 mg Q30M PRN IV 02/25/24 21:00 Ceftriaxone Sodium 50 ml @ 100 mls/hr Q24H IV 02/26/24 21:00 02/27/24 21:53 100 MLS/HR Aspirin 81 mg DAILY PO 02/27/24 10:00 02/28/24 09:40 81 MG Enoxaparin Sodium 90 mg Q12HR SC 02/27/24 10:00 02/28/24 09:40 90 MG Hydralazine HCl 10 mg Q8HR PO 02/27/24 14:00 02/28/24 06:36 10 MG Furosemide 40 mg TID IV 02/27/24 14:00 02/28/24 07:07 40 MG Potassium Bicarbonate 25 meq DAILY PO 02/28/24 10:00 02/28/24 09:39 25 MEQ Pantoprazole Sodium 40 mg DAILY@0600 PO 02/28/24 06:00 02/28/24 06:37 40 MG Carvedilol 12.5 mg BID PO 02/28/24 22:00 Examination General: Appears stated age, in no acute distress Pulm: Clear to auscultation bilaterally CVS: RRR, normal S1 and S2 Ext: + BLE edema Neuro: Alert and oriented x4 laboratory and microbiology Laboratory Tests 02/28/24 05:29 02/27/24 10:47 Test 02/28/24 05:29 Range/Units Serum Glucose 115 H 74-106 mg/dL Microbiology Date/Time Source Procedure Growth Status 02/26/24 11:15 Pleural Fluid Gram Stain - Final Resulted 02/26/24 11:15 Pleural Fluid Aerobic Culture - Preliminary Resulted Labs and/or images reviewed: Labs reviewed by tx Problem List/Assessment/Plan Problem List/Assessment/Plan Acute kidney injury superimposed Chronic Kidney Disease secondary Hemodynamic mediated-ongoing Congestive heart failure exacerbation NSTEMI Hyperkalemia-resolved History of polysubstance abuse Hypertensive urgency Renal U/S IMPRESSION: 1. No renal masses, stones or signs of obstruction Recommendations Serial chemistry panels Continue closely monitoring fluid and electrolytes Avoid nephrotoxic medications Strict I&Os Agree with diuresis Blood pressure control Renal diet Supplemental potassium as needed We will continue to follow Plan discussed with: Patient KIERAN JACKSON [employer]OD[employer] DIRECTOR Feb 28, 2024 13:27
--- NOTE | 2024-02-28 14:45 | DVH ---
Exam: US TESTICULAR ULTRASOUND Date: 02/28/2024 01:15 PM Clinical History: scrotum swelling Comparison: None Technique: Targeted sonographic evaluation of the soft tissues of the [facility] was obtained utiliz ing grayscale and color Doppler imaging. Findings: RIGHT TESTICLE: 3.4 X 2.9 X 1.6 CM NORMAL BLOOD FLOW Large right hydrocele Right epididymis not visualized LEFT TESTICLE: 3 x 2.6 x 1.7 cm. Large left hydrocele Normal vascular flow 1.5 x 0.9 x 0.5 cm calcification noted in the left scrotal wall. Left epididymis measures 17 mm and appears normal IMPRESSION: 1. No definite sonographic abnormality is identified in the soft tissues of the [facility] 2. Large bilateral hydrocele 3. Large right inguinal hernia containing bowel. 4. Calcification in the wall of the scrotum on the left
--- NOTE | 2024-02-28 15:22 | DVHPN2 ---
Consult Progress Note Subjective Patient reports: Feels better Review of Systems: CVS:Abnormal (BLE edema improving) Objective vital signs Vital Sign Date Time Temp Pulse Resp B/P (MAP) Pulse Ox O2 Delivery O2 Flow Rate FiO2 02/28/24 15:01 130/98 02/28/24 09:40 92 02/28/24 09:00 97.9 16 91 97.9 02/28/24 08:00 Room Air* 0 21 Total Intake and Output 02/27/24 02/27/24 02/28/24 15:00 23:00 07:00 Intake Total 1000 ml 400 ml Output Total 725 ml 650 ml 1700 ml Balance -725 ml 350 ml -1300 ml medications Current Medications Medications Dose Ordered Sig/Jose Antonio Route Start Time Stop Time Status Last Admin Dose Admin Atorvastatin Calcium 10 mg HS PO 02/25/24 22:00 02/27/24 21:57 10 MG Temazepam 15 mg QHSP PRN PO 02/25/24 21:00 Ondansetron HCl 4 mg Q4HP PRN IV 02/25/24 21:00 Acetaminophen 650 mg Q6HP PRN PO 02/25/24 21:00 Nitroglycerin 0.4 mg Q5MINP PRN SL 02/25/24 21:00 Morphine Sulfate 2 mg Q30M PRN IV 02/25/24 21:00 Ceftriaxone Sodium 50 ml @ 100 mls/hr Q24H IV 02/26/24 21:00 02/27/24 21:53 100 MLS/HR Aspirin 81 mg DAILY PO 02/27/24 10:00 02/28/24 09:40 81 MG Enoxaparin Sodium 90 mg Q12HR SC 02/27/24 10:00 02/28/24 09:40 90 MG Hydralazine HCl 10 mg Q8HR PO 02/27/24 14:00 02/28/24 15:00 10 MG Furosemide 40 mg TID IV 02/27/24 14:00 02/28/24 15:01 40 MG Potassium Bicarbonate 25 meq DAILY PO 02/28/24 10:00 02/28/24 09:39 25 MEQ Pantoprazole Sodium 40 mg DAILY@0600 PO 02/28/24 06:00 02/28/24 06:37 40 MG Carvedilol 12.5 mg BID PO 02/28/24 22:00 Examination: LUNGS:Abnormal (basilar rales), CVS:Abnormal (+2-3 DLE pitting edema) laboratory and microbiology Laboratory Tests 02/28/24 05:29 02/27/24 10:47 Test 02/28/24 05:29 Range/Units Serum Glucose 115 H 74-106 mg/dL Problem List/Assessment/Plan Problem List/Assessment/Plan Assessment Acute respiratory failure Acute new onset congestive heart failure (EF 15%) Methamphetamine associated cardiomyopathy NSTEMI probable type 2 due to above Atrial fibrillation/atrial flutter RVR of unknown timing (chads Vasc /1 has bled 1) secondary hypercoagulability state Bilateral pleural effusion - status post thoracentesis JEFFREY vs CKD Probable UTI Transaminitis Coagulopathy secondary to CHF Polysubstance abuse (methamphetamine, alcohol, CBD, tobacco) Obese Large bilateral inguinal hernia Plan/Recommendation Patient has newly diagnosed congestive heart failure (pending echocardiogram). Currently on furosemide 40 mg IV t.i.d. Troponin probably secondary to CHF and recent methamphetamine abuse. Completed right-sided thoracentesis with debit of 1.4 L of transudate (per light criteria). We will start enoxaparin for atrial fibrillation/atrial flutter. Optimize loading conditions We will start GDMT , cardiomyopathy with EF 15%. Coreg up titrated. Not on Hong/Arb due to JEFFREY. Plan to start upon discharge once CKD stabilizes. Strongly counseled on polysubstance abuse cessation. IV antibiotics per hospitalist Discussed case with Dr. Tobias, patient and nurses: Patient probably has methamphetamine associated cardiomyopathy with HFrEF EF 15%. Continue IV diuretics, completed thoracentesis, started enoxaparin treatment for AFib/a flutter may transition to Eliquis 5 mg p.o. twice daily for stroke prophylaxis. Optimization of GDMT. Strongly counseled patient on polysubstance abuse cessation. Patient has poor prognosis. Plan discussed with: Patient, Other (Nurses) Plan discussed with: Patient Date of Service: Feb 28, 2024 Billing Provider: LULA TOBIAS MD Common Visit Codes: [id number] INP/OBS CARE(HIGH) KADEN MARIN AGACNP Feb 28, 2024 15:22
[2024-02-28] MEDS: hydrALAZINE HCL 20 MG/ML VL IV ONE (18:27)
[2024-02-28] MEDS: CARVEDILOL 12.5 MG TAB PO SCH (22:01)
[2024-02-29] VITALS (8 sets, daily range): BP systolic 131–154; BP diastolic 88–101; PULSE 64–93; RESP 18–20; TEMP 97.4–99.3; O2SAT 90–100
--- NOTE | 2024-02-29 13:47 | DVHPN2 ---
Reviewed: Care Plan, H&P, Labs, Medications Changes from previous H/P or p: No Changes General: Per HPI Objective Vitals Vital Signs Date Time Temp Pulse Resp B/P (MAP) Pulse Ox O2 Delivery O2 Flow Rate FiO2 02/29/24 09:26 73 154/101 02/29/24 08:46 97.5 20 94 97.5 02/29/24 08:00 Room Air* 0 21 Intake/Output Intake and Output 02/29/24 07:00 Intake Total 1906 ml Output Total 7215 ml Balance -5309 ml Intake Oral 1906 ml Output Urine Total 7215 ml Stool Total 0 ml General Appearance: Alert, Oriented X3, Cooperative, No acute distress HEENT: Atraumatic, PERRLA Lungs: Normal air movement, Other (Decreased breath sounds at bases) Cardiovascular: Normal S1, Normal S2 Abdomen: Normal bowel sounds, Soft, No tenderness, No hepatospenomegaly Musculoskeletal: Normal sensory function, Normal motor function Neuro: Normal gait, Normal speech Psych/Mental Status: Mental status NL, Mood NL Medications Current Medications Medications Dose Ordered Sig/Jose Antonio Route Start Time Stop Time Status Last Admin Dose Admin Atorvastatin Calcium 10 mg HS PO 02/25/24 22:00 02/28/24 22:01 10 MG Temazepam 15 mg QHSP PRN PO 02/25/24 21:00 Ondansetron HCl 4 mg Q4HP PRN IV 02/25/24 21:00 Acetaminophen 650 mg Q6HP PRN PO 02/25/24 21:00 Nitroglycerin 0.4 mg Q5MINP PRN SL 02/25/24 21:00 Morphine Sulfate 2 mg Q30M PRN IV 02/25/24 21:00 Ceftriaxone Sodium 50 ml @ 100 mls/hr Q24H IV 02/26/24 21:00 02/28/24 21:54 100 MLS/HR Aspirin 81 mg DAILY PO 02/27/24 10:00 02/29/24 09:26 81 MG Enoxaparin Sodium 90 mg Q12HR SC 02/27/24 10:00 02/29/24 09:29 90 MG Hydralazine HCl 10 mg Q8HR PO 02/27/24 14:00 02/29/24 05:40 10 MG Furosemide 40 mg TID IV 02/27/24 14:00 02/29/24 05:39 40 MG Potassium Bicarbonate 25 meq DAILY PO 02/28/24 10:00 02/29/24 09:25 25 MEQ Pantoprazole Sodium 40 mg DAILY@0600 PO 02/28/24 06:00 02/29/24 05:40 40 MG Carvedilol 12.5 mg BID PO 02/28/24 22:00 02/29/24 09:26 12.5 MG Laboratory Results Laboratory Tests 02/27/24 10:47 02/28/24 05:29 Urinalysis Test 02/25/24 20:23 02/27/24 15:35 Urine Color Yellow (Yellow) Urine Clarity Turbid (Clear) H Urine pH 5.0 (5.0-9.0) Urine Specific [place] 1.011 (1.001-1.035) Urine Protein 1+ (Negative) H Urine Ketones Negative (Negative) Urine Blood Negative /uL (Negative) Urine Nitrite Negative (Negative) Urine Bilirubin Negative (Negative) Urine Urobilinogen Normal mg/dL (Negative) Urine Leukocyte Esterase 2+ /uL (Negative) Urine RBC 2 /hpf (0 - 3) Urine WBC 30 /hpf (0 - 3) Urine Squamous Epithelial Cells Few /hpf (<5) Urine Amorphous Crystals Few /hpf (None Seen) Urine Bacteria Few /hpf (None Seen) H Urine Hyaline Casts Few /lpf (0 - 2) Urine Mucus Few (None Seen) Urine Glucose Normal mg/dL (Normal) Urine Creatinine 25.00 mg/dL (30.0-125.0) L Urine Sodium 83 mmol/L (40-220) Urine Total Protein 11.5 mg/dL (1-14) Microbiology Microbiology Date/Time Source Procedure Growth Status 02/26/24 11:15 Pleural Fluid Gram Stain - Final Resulted 02/26/24 11:15 Pleural Fluid Aerobic Culture - Preliminary Resulted Assessment/Plan Assessment/Plan Impression: -acute decompensated systolic and diastolic heart failure -acute kidney injury, probable cardiorenal failure -history of methamphetamine use -acute hypoxic respiratory failure -nicotine dependence -Transaminitis Plan: Events: No events overnight. -Echocardiogram pending: Preliminary with severe aspirin decompensated EF -Consults: Cardiology, Nephrology -IV diuresis -maximize heart failure medication. Cardiology to evaluate need for anticoagulation with CHADS-VASc score probably 2 -Repeat labs, x-ray in AM. 02/28/2024: continue with diuresis and weaning down on supplemental O2. Pt does not use O2 at home and not on diuretics. Never been diagnosed with CHF before. 02/29/2024: pt's EF if ~15%. continue with diuresis. pt is off of O2. Total time spent with patient discussing and formulating plan of care: 35 minutes. Plan discussed with: Patient Date of Service: Feb 29, 2024 Billing Provider: LEIGH ASCENCIO DO Common Visit Codes: [id number] INP/OBS CARE(HIGH) LEIGH ASCENCIO DO Feb 29, 2024 13:47
[2024-02-29] MEDS ORDERED: CARV-216 PO (13:50)
[2024-02-29] MEDS ORDERED: FURO1TAB31 PO (13:50)
[2024-02-29] MEDS ORDERED: ASPI-325 PO (13:50)
[2024-02-29] MEDS ORDERED: ATOR20TA50 PO (13:50)
[2024-02-29] MEDS ORDERED: APIX5TAB PO (13:57)
--- NOTE | 2024-02-29 14:19 | DVHPN2 ---
Consult Progress Note Subjective Patient reports: Feels better Review of Systems: CVS:Abnormal (BLE edema improving) Objective vital signs Vital Sign Date Time Temp Pulse Resp B/P (MAP) Pulse Ox O2 Delivery O2 Flow Rate FiO2 02/29/24 13:00 97.7 87 20 131/89 (103) 96 97.7 02/29/24 08:00 Room Air* 0 21 Total Intake and Output 02/28/24 02/28/24 02/29/24 15:00 23:00 07:00 Intake Total 706 ml 1200 ml Output Total 1600 ml 5615 ml Balance -894 ml -4415 ml medications Current Medications Medications Dose Ordered Sig/Jose Antonio Route Start Time Stop Time Status Last Admin Dose Admin Atorvastatin Calcium 10 mg HS PO 02/25/24 22:00 02/28/24 22:01 10 MG Temazepam 15 mg QHSP PRN PO 02/25/24 21:00 Ondansetron HCl 4 mg Q4HP PRN IV 02/25/24 21:00 Acetaminophen 650 mg Q6HP PRN PO 02/25/24 21:00 Nitroglycerin 0.4 mg Q5MINP PRN SL 02/25/24 21:00 Morphine Sulfate 2 mg Q30M PRN IV 02/25/24 21:00 Ceftriaxone Sodium 50 ml @ 100 mls/hr Q24H IV 02/26/24 21:00 02/28/24 21:54 100 MLS/HR Aspirin 81 mg DAILY PO 02/27/24 10:00 02/29/24 09:26 81 MG Enoxaparin Sodium 90 mg Q12HR SC 02/27/24 10:00 02/29/24 09:29 90 MG Hydralazine HCl 10 mg Q8HR PO 02/27/24 14:00 02/29/24 05:40 10 MG Furosemide 40 mg TID IV 02/27/24 14:00 02/29/24 05:39 40 MG Potassium Bicarbonate 25 meq DAILY PO 02/28/24 10:00 02/29/24 09:25 25 MEQ Pantoprazole Sodium 40 mg DAILY@0600 PO 02/28/24 06:00 02/29/24 05:40 40 MG Carvedilol 12.5 mg BID PO 02/28/24 22:00 02/29/24 09:26 12.5 MG Metolazone 5 mg DAILY PO 03/01/24 10:00 laboratory and microbiology Laboratory Tests 02/28/24 05:29 02/27/24 10:47 Test 02/28/24 05:29 Range/Units Serum Glucose 115 H 74-106 mg/dL Problem List/Assessment/Plan Problem List/Assessment/Plan Assessment Acute respiratory failure Acute new onset congestive heart failure (EF 15%) Methamphetamine associated cardiomyopathy NSTEMI probable type 2 due to above Atrial fibrillation/atrial flutter RVR of unknown timing (chads Vasc /1 has bled 1) secondary hypercoagulability state Bilateral pleural effusion - status post thoracentesis JEFFREY vs CKD Probable UTI Transaminitis Coagulopathy secondary to CHF Polysubstance abuse (methamphetamine, alcohol, CBD, tobacco) Obese Large bilateral inguinal hernia Plan/Recommendation Patient has newly diagnosed congestive heart failure. Currently on furosemide 40 mg IV t.i.d., metolazone 5 mg p.o. daily added. Continue diuresis per Nephrology. Troponin probably secondary to CHF and recent methamphetamine abuse. Completed right-sided thoracentesis with debit of 1.4 L of transudate (per light criteria). We will start enoxaparin for atrial fibrillation/atrial flutter. Optimize loading conditions We will start GDMT , cardiomyopathy with EF 15%. Coreg up titrated. Not on Hong/Arb due to JEFFREY. Plan to start upon discharge once CKD stabilizes. Strongly counseled on polysubstance abuse cessation. IV antibiotics per hospitalist Monitoring replace electrolytes. Scrotal ultrasound shows large bilateral hydrocele, with large right inguinal hernia containing bowel. Discussed case with Dr. Tobias, patient and nurses: Patient probably has methamphetamine associated cardiomyopathy with HFrEF EF 15%. Continue IV diuretics, completed thoracentesis, started enoxaparin treatment for AFib/a flutter may transition to Eliquis 5 mg p.o. twice daily for stroke prophylaxis. Optimization of GDMT. Strongly counseled patient on polysubstance abuse cessation. Patient has poor prognosis. We will sign off. Reconsult if needed. Plan discussed with: Patient, Other (Nurses) Plan discussed with: Patient Date of Service: Feb 29, 2024 Billing Provider: LULA TOBIAS MD Common Visit Codes: [id number] INP/OBS CARE(HIGH) KADEN MARIN [facility] Feb 29, 2024 14:19
--- NOTE | 2024-02-29 14:32 | DVHPN2 ---
Progress Note Date Seen: Feb 29, 2024 Medical Necessity Reason Pt with a Central, PICC or Fol: No Subjective Review of Systems Pt resting in bed. Denies any overnight events. Patient reports: No new complaints, Feels better Objective vital signs Vital Sign Date Time Temp Pulse Resp B/P (MAP) Pulse Ox O2 Delivery O2 Flow Rate FiO2 02/29/24 13:00 97.7 87 20 131/89 (103) 96 97.7 02/29/24 08:00 Room Air* 0 21 Total Intake and Output 02/28/24 02/28/24 02/29/24 15:00 23:00 07:00 Intake Total 706 ml 1200 ml Output Total 1600 ml 5615 ml Balance -894 ml -4415 ml medications Current Medications Medications Dose Ordered Sig/Jose Antonio Route Start Time Stop Time Status Last Admin Dose Admin Atorvastatin Calcium 10 mg HS PO 02/25/24 22:00 02/28/24 22:01 10 MG Temazepam 15 mg QHSP PRN PO 02/25/24 21:00 Ondansetron HCl 4 mg Q4HP PRN IV 02/25/24 21:00 Acetaminophen 650 mg Q6HP PRN PO 02/25/24 21:00 Nitroglycerin 0.4 mg Q5MINP PRN SL 02/25/24 21:00 Morphine Sulfate 2 mg Q30M PRN IV 02/25/24 21:00 Ceftriaxone Sodium 50 ml @ 100 mls/hr Q24H IV 02/26/24 21:00 02/28/24 21:54 100 MLS/HR Aspirin 81 mg DAILY PO 02/27/24 10:00 02/29/24 09:26 81 MG Enoxaparin Sodium 90 mg Q12HR SC 02/27/24 10:00 02/29/24 09:29 90 MG Hydralazine HCl 10 mg Q8HR PO 02/27/24 14:00 02/29/24 05:40 10 MG Furosemide 40 mg TID IV 02/27/24 14:00 02/29/24 05:39 40 MG Potassium Bicarbonate 25 meq DAILY PO 02/28/24 10:00 02/29/24 09:25 25 MEQ Pantoprazole Sodium 40 mg DAILY@0600 PO 02/28/24 06:00 02/29/24 05:40 40 MG Carvedilol 12.5 mg BID PO 02/28/24 22:00 02/29/24 09:26 12.5 MG Metolazone 5 mg DAILY PO 03/01/24 10:00 Examination General: Appears stated age, in no acute distress Pulm: Clear to auscultation bilaterally CVS: RRR, normal S1 and S2 Ext: + BLE edema Abd: Normoactive bowel sounds, soft, nontender, and nondistended. Neuro: Alert and oriented x4 laboratory and microbiology Laboratory Tests 02/28/24 05:29 02/27/24 10:47 Test 02/28/24 05:29 Range/Units Serum Glucose 115 H 74-106 mg/dL Microbiology Date/Time Source Procedure Growth Status 02/26/24 11:15 Pleural Fluid Gram Stain - Final Resulted 02/26/24 11:15 Pleural Fluid Aerobic Culture - Preliminary Resulted Labs and/or images reviewed: Labs reviewed by me Problem List/Assessment/Plan Problem List/Assessment/Plan Acute kidney injury superimposed Chronic Kidney Disease secondary Hemodynamic mediated-ongoing Congestive heart failure exacerbation NSTEMI Hyperkalemia-resolved History of polysubstance abuse Hypertensive urgency Renal U/S IMPRESSION: 1. No renal masses, stones or signs of obstruction Recommendations Continue serial chemistry panels Continue closely monitoring fluid and electrolytes Avoid nephrotoxic medications Strict I&Os Agree with diuresis Blood pressure control Renal diet Supplemental potassium as needed We will continue to follow Plan discussed with: Patient My Orders My Orders Orders - KIERAN JACKSON Procedure Category Date Status Time Complete Blood Count LAB 03/01/24 Verified 04:00 Comprehensive LAB 03/01/24 Verified Metabolic Panel 04:00 KIERAN JACKSON Feb 29, 2024 14:32
[2024-02-29] MEDS ORDERED: hydrALAZINE HCL 20 MG/ML VL IV PRN (15:00)
[2024-03-01 01:00] VITALS: BP 119/81; PULSE 84; RESP 20; TEMP 98.4; O2SAT 93
[2024-03-01 05:00] VITALS: BP 150/101; PULSE 91; RESP 20; TEMP 98; O2SAT 92
[2024-03-01 06:28] LABS: Basophils # (auto) 0.1 10 ^3/uL (0-0.2); Eosinophils # (auto) 0.3 10 ^3/uL (0-0.8); Eosinophils % (auto) 3.4 % (0.0-7.0); Hematocrit 43.1 % (41.0-53.0); Lymphocytes # (auto) 1.9 10 ^3/uL (0.4-5.4); Lymphocytes % (auto) 24.5 % (10.0-50.0); Mean Corpuscular Hgb Conc. 32.6 g/dL (32.0-36.0); Monocytes # (auto) 0.8 10 ^3/uL (0-1.3); Monocytes % (auto) 10.3 % (0.0-12.0); Neutrophils # (auto) 4.8 10 ^3/uL (1.6-8.6); Neutrophils % (auto) 60.8 % (37.0-80.0); Nucleated Red Blood Cells % 0.1 %; Platelet Count (auto) 254 10^3/uL (140-450); Red Blood Cells 4.68 10^6/uL (4.5-5.90); Red Cell Distribution Width 16.8 % (11.8-14.3); White Blood Cell 7.8 10^3/uL (4.4-10.8)
[2024-03-01 06:43] LABS: Alanine Aminotransferase 64 U/L (7-40); Albumin 3.4 g/dL (3.2-4.8); Alkaline Phosphatase 87 U/L (46-116); Anion Gap 6 (5-15); Aspartate Aminotransferase 38 U/L (13-40); BUN/Creatinine Ratio 14.5 (10.0-20.0); Bilirubin, Total 0.7 mg/dL (0.2-1.0); Blood Urea Nitrogen 24 mg/dL (9-23); Carbon Dioxide 34 mmol/L (20-31); Chloride 102 mmol/L (98-107); Glucose 92 mg/dL (74-106); Potassium 3.3 mmol/L (3.5-5.1); Sodium 142 mmol/L (136-145); Total Protein 6.9 g/dL (5.7-8.2)
[2024-03-01 08:00] VITALS: PULSE 93
[2024-03-01 08:43] VITALS: BP 153/104; PULSE 91; RESP 19; TEMP 98.1; O2SAT 97
[2024-03-01] MEDS: metOLazone 5 MG TAB PO SCH (10:05)
[2024-03-01] MEDS ORDERED: LOS25T PO (11:12)
[2024-03-01] MEDS ORDERED: POTA8TAB38 PO (11:12)
[2024-03-01] MEDS ORDERED: CARV-216 OR (11:12)
[2024-03-01] MEDS ORDERED: FURO1TAB31 PO (11:12)
[2024-03-01] MEDS ORDERED: APIX5TAB PO (11:12)
--- NOTE | 2024-03-01 12:51 | DVHDS2 ---
Discharge Summary Date of Admission Feb 25, 2024 at 20:46 Date of Discharge: Mar 01, 2024 Admitting Diagnosis Congestive heart failure Labs/Diagnostic Data: Laboratory Results Test 03/01/24 05:40 02/28/24 05:29 02/27/24 15:35 02/27/24 10:47 White Blood Count 7.8 10^3/uL (4.4-10.8) Red Blood Count 4.68 10^6/uL (4.5-5.90) Hemoglobin 14.0 g/dL (13.5-17.5) Hematocrit 43.1 % (41.0-53.0) Mean Corpuscular Volume 92.0 fL (80.0-100.0) Mean Corpuscular Hemoglobin 30.0 pg (28.0-32.0) Mean Corpuscular Hemoglobin Concent 32.6 g/dL (32.0-36.0) Red Cell Distribution Width 16.8 % (11.8-14.3) Platelet Count 254 10^3/uL (140-450) Mean Platelet Volume 7.6 fL (6.9-10.8) Neutrophils (%) (Auto) 60.8 % (37.0-80.0) Lymphocytes (%) (Auto) 24.5 % (10.0-50.0) Monocytes (%) (Auto) 10.3 % (0.0-12.0) Eosinophils (%) (Auto) 3.4 % (0.0-7.0) Basophils (%) (Auto) 1.0 % (0.0-2.0) Neutrophils # (Auto) 4.8 10 ^3/uL (1.6-8.6) Lymphocytes # (Auto) 1.9 10 ^3/uL (0.4-5.4) Monocytes # (Auto) 0.8 10 ^3/uL (0-1.3) Eosinophils # (Auto) 0.3 10 ^3/uL (0-0.8) Basophils # (Auto) 0.1 10 ^3/uL (0-0.2) Nucleated Red Blood Cells 0.1 % Sodium Level 142 mmol/L (136-145) Potassium Level 3.3 mmol/L (3.5-5.1) Chloride Level 102 mmol/L (98-107) Carbon Dioxide Level 34 mmol/L (20-31) Anion Gap 6 (5-15) Blood Urea Nitrogen 24 mg/dL (9-23) Creatinine 1.65 mg/dL (0.700-1.30) Glomerular Filtration Rate Calc 48 mL/min (>90) BUN/Creatinine Ratio 14.5 (10.0-20.0) Serum Glucose 92 mg/dL (74-106) Calcium Level 9.0 mg/dL (8.7-10.4) Total Bilirubin 0.7 mg/dL (0.2-1.0) Aspartate Amino Transferase (AST) 38 U/L (13-40) Alanine Aminotransferase (ALT) 64 U/L (7-40) Alkaline Phosphatase 87 U/L (46-116) Total Protein 6.9 g/dL (5.7-8.2) Albumin 3.4 g/dL (3.2-4.8) Magnesium Level 2.1 mg/dL (1.6-2.6) Urine Creatinine 25.00 mg/dL (30.0-125.0) Urine Sodium 83 mmol/L (40-220) Urine Total Protein 11.5 mg/dL (1-14) Prothrombin Time 13.4 sec (9.3-11.8) Prothrombin Time INR 1.29 (0.9-1.15) Activated Partial Thromboplast Time 30.1 SEC (24.5-34.5) Phosphorus Level 3.7 mg/dL (2.4-5.1) Lactate Dehydrogenase 215 U/L (120-246) Test 02/26/24 11:15 02/26/24 10:00 02/26/24 09:36 02/26/24 03:33 Body Fluid Source Peritoneal fluid Body Fluid pH 8.0 Body Fluid WBC (Manual) 383 CUMM (0-200) Body Fluid RBC (Manual) 948 CUMM (0-2000) Body Fluid Mononuclear Cells 85 % Body Fluid Polymorphonuclear Cells 15 % (0-25) Body Fluid Glucose 94 mg/dL (.) Body Fluid Total Protein 1.8 g/dL (.) Body Fluid Lactate Dehydrogenase 89 IU/L (.) Vitamin B12 Level 1854 pg/mL (211-911) Vitamin D 25-Hydroxy 33.3 ng/mL (30.0-100) Lactic Acid Level 1.0 mmol/L (0.4-2.0) Hemoglobin A1c 5.5 % A1C (<5.7) Direct Bilirubin 0.8 mg/dL (<0.3) Triglycerides Level 76 mg/dL (< 150) Cholesterol Level 118 mg/dL (< 200) LDL Cholesterol 91 mg/dL (< 100) HDL Cholesterol 25 mg/dL (40-59) Thyroid Stimulating Hormone (TSH) 2.45 uIU/mL (0.55-4.78) Parathyroid Hormone (Intact) 105.5 pg/mL (18.4-80.1) Test 02/25/24 20:46 02/25/24 20:23 02/25/24 20:19 02/25/24 17:26 SARS-CoV-2 Antigen (Rapid) Negative (NEGATIVE) Urine Color Yellow (Yellow) Urine Clarity Turbid (Clear) Urine pH 5.0 (5.0-9.0) Urine Specific [place] 1.011 (1.001-1.035) Urine Protein 1+ (Negative) Urine Ketones Negative (Negative) Urine Blood Negative /uL (Negative) Urine Nitrite Negative (Negative) Urine Bilirubin Negative (Negative) Urine Urobilinogen Normal mg/dL (Negative) Urine Leukocyte Esterase 2+ /uL (Negative) Urine RBC 2 /hpf (0 - 3) Urine WBC 30 /hpf (0 - 3) Urine Squamous Epithelial Cells Few /hpf (<5) Urine Amorphous Crystals Few /hpf (None Seen) Urine Bacteria Few /hpf (None Seen) Urine Hyaline Casts Few /lpf (0 - 2) Urine Mucus Few (None Seen) Urine Glucose Normal mg/dL (Normal) Urine Opiates Screen Neg (NEGATIVE) Urine Fentanyl Screen Neg (NEGATIVE) Urine Barbiturates Screen Neg (NEGATIVE) Urine Phencyclidine Screen Neg (NEGATIVE) Urine Amphetamines Screen Neg (NEGATIVE) Urine Benzodiazepines Screen Neg (NEGATIVE) Urine Cocaine Screen Neg (NEGATIVE) Urine Cannabinoids Screen Pos (NEGATIVE) Troponin I High Sensitivity 123 ng/L (</=54) D-Dimer, Quantitative 3.58 mg/L FEU (0.0-0.49) B-Type Natriuretic Peptide 2117.74 pg/mL (0-100) Other Laboratory Tests 03/01/24 05:40 Brief Hx & Hospital Course: History of Present Illness 59-year-old male presents for evaluation of shortness of breath. Patient with a history of congestive heart failure presents for evaluation of a three day history of worsening shortness for breath with associated bilateral lower extremity swelling. He also reports mild chest pressure. No other acute complaints reported. Course of hospitalization: Patient was started on aggressive IV diuresis. Nephrology consultation has been obtained guarding acute kidney injury. Patient's BUN and creatinine has improved. Cardiology consultation has been obtained. Patient underwent echocardiogram which revealed severe left ventricular dysfunction with ejection fraction 15%. Patient was also found to have large left apical thrombus. Patient was started on Lovenox therapeutic dose while in the hospital, transitioning to Eliquis. Patient was had adequate IV diuresis with his bilateral lower extremity swelling improving dramatically. The patient has also been weaned off of oxygen and is no longer dyspneic. The patient will be discharged home with beta-ramakrishna therapy, Arb, Eliquis, Lasix, as well as potassium replacement. He will follow up with the discharge Clinic in one week. All questions answered. Physical exam General: Alert and Oriented x3. No acute distress. Well-nourished. Eyes: EOMI. Anicteric. HENT: Moist mucous membranes. Lungs: Clear to auscultation bilaterally. No accessory muscle use. Cardiovascular: Regular rate and rhythm. No murmur. No JVD. Abdomen: Soft, non-tender and non-distended. No palpable masses. Extremities: No edema. Non-tender. Skin: No rashes or lesions. Warm. Neurologic: No focal neurological deficits. CN II-XII grossly intact, but not individually tested. Psychiatric: Cooperative. Appropriate mood and affect. Total time spent with patient discussing and formulating plan of care: 35 minutes. This medical document was created using an electronic medical record system with [employer] dictation system. Although this document has been carefully reviewed, there may still be some phonetic and typographical errors. These areas are purely typographical due to imperfections of the software programs, and do not reflect any compromise in the patient's medical care. Consults/Reason for consult Nephrology: Acute kidney injury Cardiology: Decompensated heart failure Condition at Discharge: Poor Final Diagnosis/Problems List Acute decompensated systolic heart failure Secondary Diagnosis: Large apical thrombus -diastolic heart failure, acute -acute kidney injury, probable cardiorenal failure -history of methamphetamine use -acute hypoxic respiratory failure -nicotine dependence -Transaminitis Discharge Disposition: Home Discharge Instruct/Medications Diet: Cardiac 2g Na,low cholest Diet comment: Fluid restriction of 1400 mL per day Activity: No Restrictions, As Tolerated Follow Up/Referral: Discharge Clinic in one week Medications: Eliquis 5 mg p.o. twice a day Carvedilol 12.5 mg p.o. twice a day Losartan 25 mg p.o. daily Lasix 40 mg p.o. daily Klor-Con 36 Discharge Statement: "Patient was advised to return to the ER or call 911 if any headaches, dizziness, shortness of breath, chest pain, abdominal pain, bleeding, fevers, or worsening of medical condition. Patient was counseled about treatment plan, medications, possible side effects, patientverbalized understanding. All questions were answered to the best of my ability. This discharge took greater then 30 minutes in planning, reviewing documentation, counseling the patient, and discussing with other team members." ASSESSMENT ASSESSMENT Assessment Acute decompensated systolic heart failure Date of Service: Mar 01, 2024 Billing Provider: RIO RIDER NP Common Visit Codes: 71242-BWN/OBS DISCH DAY >30min RIO RIDER NP Mar 01, 2024 12:51
[2024-03-01 13:00] VITALS: BP 139/91; PULSE 48; RESP 16; TEMP 98.7; O2SAT 92
[2024-03-01] MEDS: LOSARTAN POTASSIUM 50 MG TAB PO ONE (16:15)
[2024-03-01] MEDS ORDERED: APIXABAN 5 MG TAB PO SCH (22:00)
[2024-03-02] MEDS ORDERED: FUROSEMIDE 20 MG TAB PO SCH (10:00)
[2024-03-02] MEDS ORDERED: LOSARTAN POTASSIUM 50 MG TAB PO SCH (10:00)
== END 2024-03-01 16:15 | disposition home or self-care (01) | DRG 133 ==
LOC: ER 16:19 → TELE 20:46 → DOU IN ICU 02-26 05:00 → TELE-CENTR 02-26 23:14
PROVIDERS: ADMIT Internal Medicine; ATTEND Nurse Practitioner Acute Care
PROC: 0W993ZZ Drainage of Right Pleural Cavity, Percutaneous Approach (ICD-10-PCS; principal; 2024-02-26)
DX: J96.01 Acute respiratory failure with hypoxia (principal); I50.21 Acute systolic (congestive) heart failure; I21.A1 Myocardial infarction type 2; N17.9 Acute kidney failure, unspecified; D68.69 Other thrombophilia; D68.9 Coagulation defect, unspecified; I42.7 Cardiomyopathy due to drug and external agent; I48.92 Unspecified atrial flutter; I51.3 Intracardiac thrombosis, not elsewhere classified; Z20.822 Contact with and (suspected) exposure to COVID-19; J91.8 Pleural effusion in other conditions classified elsewhere; N39.0 Urinary tract infection, site not specified; E87.5 Hyperkalemia; I16.0 Hypertensive urgency; E66.9 Obesity, unspecified; F15.10 Other stimulant abuse, uncomplicated; I48.91 Unspecified atrial fibrillation; K40.20 Bilateral inguinal hernia, without obstruction or gangrene, not specified as recurrent; N18.9 Chronic kidney disease, unspecified; F17.210 Nicotine dependence, cigarettes, uncomplicated; F10.10 Alcohol abuse, uncomplicated; K21.9 Gastro-esophageal reflux disease without esophagitis; N43.3 Hydrocele, unspecified; Z82.49 Family history of ischemic heart disease and other diseases of the circulatory system; Z79.899 Other long term (current) drug therapy; Z68.28 Body mass index [BMI] 28.0-28.9, adult
CPT/HCPCS: 32555; 36415; 71045; 76604; 76775; 76870; 76942; 78582; 80048; 80053; 80061; 80076; 80307; 81001; 82306; 82570; 82607; 83036; 83605; 83615; 83735; 83880; 83970; 83986; 84100; 84132; 84156; 84300; 84443; 84484; 85025; 85379; 85610; 85730; 86850; 86900; 86901; 87070; 87205; 87426; 89051; 93005; 93306; 93970; 94640; 96374; 96375; 99291; G0378